=== PATIENT | male | born 1950 | race Caucasian/White ===

== ENCOUNTER 2021-06-01 05:41 | Inpatient (IN) | payer MEDICARE ==
[2021-06-01 05:56] LABS: Glucose,Whole Blood 274 mg/dL (75-99)
[2021-06-01] MEDS ORDERED: DILTIAZEM DRIP BOLUS FROM BAG 1 MG SOLN IV ONE ×2 (05:56→07:21)
[2021-06-01 06:05] LABS: Basophils # (A) 0.1 k/uL (0-0.2); Basophils % (A) 1 %; Eosinophils # (A) 0.3 k/uL (0-0.7); Eosinophils % (A) 3 %; HCT 43.9 % (39.0-53.0); HGB 15.7 gm/dL (13.0-17.5); Lymphocytes # (A) 2.6 k/uL (1.0-4.8); Lymphocytes % (A) 27 %; MCH 30.9 pg (25.0-35.0); MCHC 35.7 g/dL (31.0-37.0); MCV 86.6 fL (80.0-100.0); Mean Platelet Volume 7.1; Monocytes # (A) 0.4 k/uL (0-1.0); Monocytes % (A) 5 %; Neutrophils # (A) 6.1 k/uL (1.3-7.7); Neutrophils % (A) 63 %; Platelet Count 186 k/uL (150-450); RBC 5.07 m/uL (4.30-5.90); RDW 12.7 % (11.5-15.5); WBC 9.7 k/uL (3.8-10.6)
[2021-06-01] MEDS: DILTIAZEM 125 MG in SODIUM CHLORIDE 0.9% 100 ML IV SCH ×2 (06:05→21:33)
[2021-06-01] MEDS ORDERED: ASPIRIN 81 MG PO STA (06:06)
--- NOTE | 2021-06-01 06:06 | ED ---
Dizziness HPI - General Chief Complaint: Dizziness Stated Complaint: Weakness, confusion Time Seen by Provider: 06/01/21 05:56 Source: patient, family Mode of arrival: wheelchair Limitations: no limitations - History of Present Illness Initial Comments: This patient is 71-year-old man who presents to be evaluated for constellation of symptoms that started approximately 2 hours ago. Patient states that he had been sleeping then woke up and got out of bed use the bathroom. When he got up he felt lightheaded, he developed diaphoresis, he was short of breath. The patient states she sat down but the symptoms did not resolve. His then subsequently convinced him to be evaluated here. MD Complaint: dizziness Onset/Timin -: hour(s) Timing: sudden onset Description: lightheadedness History of Same: No History of Trauma: No Severity: moderate Improves With: rest Associated Symptoms: chest pain, diaphoresis - Related Data Home Medications Medication Instructions Recorded Confirmed Aspirin EC [Ecotrin Low Dose] 81 mg PO DAILY 06/01/21 06/01/21 Atorvastatin [Lipitor] 80 mg PO HS 06/01/21 06/01/21 Dulaglutide [Trulicity] 1.5 mg SQ MO 06/01/21 06/01/21 lisinopriL [Zestril] 2.5 mg PO DAILY 06/01/21 06/01/21 Allergies Allergy/AdvReac Type Severity Reaction Status Date / Time No Known Allergies Allergy Verified 06/01/21 06:52 Review of Systems ROS Statement: Those systems with pertinent positive or pertinent negative responses have been documented in the HPI. ROS Other: All systems not noted in ROS Statement are negative. Constitutional: Denies: fever, chills Respiratory: Reports: dyspnea. Denies: cough Cardiovascular: Reports: chest pain, palpitations. Denies: orthopnea, edema, syncope Gastrointestinal: Denies: abdominal pain, nausea, vomiting, diarrhea Genitourinary: Denies: dysuria, hematuria Musculoskeletal: Denies: back pain Skin: Denies: rash Neurological: Denies: headache Past Medical History Past Medical History: Diabetes Mellitus History of Any Multi-Drug Resistant Organisms: None Reported Past Surgical History: Heart Catheterization With Stent Past Psychological History: No Psychological Hx Reported Smoking Status: Never smoker Past Alcohol Use History: None Reported Past Drug Use History: None Reported General Exam Limitations: no limitations General appearance: alert, in no apparent distress Head exam: Present: atraumatic, normocephalic Eye exam: Present: normal appearance. Absent: scleral icterus, conjunctival injection ENT exam: Present: normal oropharynx Neck exam: Present: normal inspection Respiratory exam: Present: normal lung sounds bilaterally. Absent: respiratory distress, wheezes, rales, rhonchi, stridor Cardiovascular Exam: Present: tachycardia, irregular rhythm, systolic murmur. A bsent: diastolic murmur, rubs, gallop GI/Abdominal exam: Present: soft. Absent: distended, tenderness, guarding, rebound, rigid, mass Extremities exam: Present: normal inspection, normal capillary refill. Absent: pedal edema, calf tenderness Back exam: Present: normal inspection. Absent: CVA tenderness (R), CVA tenderness (L) Neurological exam: Present: alert Skin exam: Present: warm, dry, intact, normal color. Absent: rash Course Vital Signs 06/01/21 06/01/21 06/01/21 05:42 06:15 06:30 Temperature 97 F L Pulse Rate 124 H 115 H 99 Respiratory 22 20 20 Rate Blood Pressure 153/87 120/77 109/74 O2 Sat by Pulse 100 100 100 Oximetry EKG Findings - EKG Results: EKG: interpreted by ERMD, normal axis, normal QRS EKG shows: tachycardia, atrial fibrillation (With rapid ventricular rate, 127 bpm) - Blocks, [place], Hypertrophy, ST Abn: Repolarization changes or abnormalities: nonspecific abnormality, ST segment, and/or T wave Medical Decision Making - Lab Data Result diagrams: 06/01/21 05:58 06/01/21 05:58 Lab Results 06/01/21 06/01/21 06/01/21 Range/Units 05:54 05:58 05:58 WBC 9.7 (3.8-10.6) k/uL RBC 5.07 (4.30-5.90) m/uL Hgb 15.7 (13.0-17.5) gm/dL Hct 43.9 (39.0-53.0) % MCV 86.6 (80.0-100.0) fL MCH 30.9 (25.0-35.0) pg MCHC 35.7 (31.0-37.0) g/dL RDW 12.7 (11.5-15.5) % Plt Count 186 (150-450) k/uL MPV 7.1 Neutrophils % 63 % Lymphocytes % 27 % Monocytes % 5 % Eosinophils % 3 % Basophils % 1 % Neutrophils # 6.1 (1.3-7.7) k/uL Lymphocytes # 2.6 (1.0-4.8) k/uL Monocytes # 0.4 (0-1.0) k/uL Eosinophils # 0.3 (0-0.7) k/uL Basophils # 0.1 (0-0.2) k/uL PT 11.5 (9.0-12.0) sec INR 1.1 (<1.2) APTT 20.5 L (22.0-30.0) sec Sodium (137-145) mmol/L Potassium (3.5-5.1) mmol/L Chloride (98-107) mmol/L Carbon Dioxide (22-30) mmol/L Anion Gap mmol/L BUN (9-20) mg/dL Creatinine (0.66-1.25) mg/dL Est GFR (CKD-EPI)AfAm (>60 ml/min/1.73 sqM) Est GFR (CKD-EPI)NonAf (>60 ml/min/1.73 sqM) Glucose (74-99) mg/dL POC Glucose (mg/dL) 274 H (75-99) mg/dL POC Glu Professional Nursing Assistant ID Anabelle Knutson Calcium (8.4-10.2) mg/dL Magnesium (1.6-2.3) mg/dL Total Bilirubin (0.2-1.3) mg/dL AST (17-59) U/L ALT (4-49) U/L Alkaline Phosphatase (38-126) U/L Troponin I (0.000-0.034) ng/mL Total Protein (6.3-8.2) g/dL Albumin (3.5-5.0) g/dL 06/01/21 06/01/21 Range/Units 05:58 05:58 WBC (3.8-10.6) k/uL RBC (4.30-5.90) m/uL Hgb (13.0-17.5) gm/dL Hct (39.0-53.0) % MCV (80.0-100.0) fL MCH (25.0-35.0) pg MCHC (31.0-37.0) g/dL RDW (11.5-15.5) % Plt Count (150-450) k/uL MPV Neutrophils % % Lymphocytes % % Monocytes % % Eosinophils % % Basophils % % Neutrophils # (1.3-7.7) k/uL Lymphocytes # (1.0-4.8) k/uL Monocytes # (0-1.0) k/uL Eosinophils # (0-0.7) k/uL Basophils # (0-0.2) k/uL PT (9.0-12.0) sec INR (<1.2) APTT (22.0-30.0) sec Sodium 139 (137-145) mmol/L Potassium 3.4 L (3.5-5.1) mmol/L Chloride 102 (98-107) mmol/L Carbon Dioxide 21 L (22-30) mmol/L Anion Gap 16 mmol/L BUN 24 H (9-20) mg/dL Creatinine 0.89 (0.66-1.25) mg/dL Est GFR (CKD-EPI)AfAm >90 (>60 ml/min/1.73 sqM) Est GFR (CKD-EPI)NonAf 88 (>60 ml/min/1.73 sqM) Glucose 274 H (74-99) mg/dL POC Glucose (mg/dL) (75-99) mg/dL POC Glu Professional Nursing Assistant ID Calcium 9.8 (8.4-10.2) mg/dL Magnesium 1.9 (1.6-2.3) mg/dL Total Bilirubin 1.0 (0.2-1.3) mg/dL AST 29 (17-59) U/L ALT 26 (4-49) U/L Alkaline Phosphatase 131 H (38-126) U/L Troponin I <0.012 (0.000-0.034) ng/mL Total Protein 6.6 (6.3-8.2) g/dL Albumin 4.5 (3.5-5.0) g/dL Disposition Referrals: Efe Johnson MD [Primary Care Provider] - 1-2 days
[2021-06-01 06:19] LABS: ALT 26 U/L (4-49); AST 29 U/L (17-59); African American GFR (CKD) >90 (>60 ml/min/1.73 sqM); Albumin 4.5 g/dL (3.5-5.0); Alkaline Phosphatase 131 U/L (38-126); Anion Gap 16 mmol/L; Blood Urea Nitrogen 24 mg/dL (9-20); Calcium 9.8 mg/dL (8.4-10.2); Carbon Dioxide 21 mmol/L (22-30); Chloride 102 mmol/L (98-107); Glucose 274 mg/dL (74-99); Magnesium 1.9 mg/dL (1.6-2.3); Non-African American GFR(CKD) 88 (>60 ml/min/1.73 sqM); Potassium 3.4 mmol/L (3.5-5.1); Sodium 139 mmol/L (137-145); Total Protein 6.6 g/dL (6.3-8.2)
[2021-06-01 06:30] LABS: INR 1.1 (<1.2); Partial Thromboplastin Time 20.5 sec (22.0-30.0); Prothrombin Time 11.5 sec (9.0-12.0)
[2021-06-01] MEDS ORDERED: ONDANSETRON 4 MG/2 ML VIAL IVP STA (06:42)
[2021-06-01] MEDS ORDERED: INSULIN NPH 300 UNIT/3 ML VIAL SQ STA (06:46)
--- NOTE | 2021-06-01 07:13 | XR ---
EXAMINATION TYPE: XR chest 1V portable DATE OF EXAM: 06/01/2021 COMPARISON: 08/17/2012 HISTORY: Dysrhythmia TECHNIQUE: Single frontal view of the chest is obtained. FINDINGS: There is no focal air space opacity, pleural effusion, or pneumothorax seen. The cardiac silhouette size is within normal limits. The osseous structures are intact. IMPRESSION: No acute process.
[2021-06-01] MEDS ORDERED: NITROGLYCERIN SL TABS 0.4 MG TAB SUBLINGUAL PRN (07:14)
[2021-06-01] MEDS: INSULIN ASPART (NovoLOG) 100 UNIT/ML VIAL SQ SCH ×4 (07:38→21:24)
[2021-06-01] MEDS ORDERED: ENOXAPARIN 100 MG/ML SYRINGE SQ ONE (07:45)
[2021-06-01 08:27] LABS: Glucose,Whole Blood 312 mg/dL (75-99)
--- NOTE | 2021-06-01 08:31 | CT ---
EXAMINATION TYPE: CT brain wo con DATE OF EXAM: 06/01/2021 COMPARISON: None HISTORY: Weakness, confusion, diplopia CT DLP: 1147.4 mGycm Automated exposure control for dose reduction was used. FINDINGS: Artifact is noted extending across portions of the images. There is moderate generalized degenerative change. Faint low attenuation is nonspecific within the white matter. Intracranial atherosclerotic c hanges are noted. Calvarium is intact. No evidence of midline shift or mass effect. Orbits are symmet miriam. Sinuses are clear. IMPRESSION: DEGENERATIVE AND NONSPECIFIC WHITE MATTER CHANGES MOST TYPICAL OF REMOTE ISCHEMIA. CORRELATE CLINICAL LY.
[2021-06-01] MEDS ORDERED: NON FORMULARY DRUG (Aspirin Ec 81 MG Tablet.Dr) PO SCH (09:00)
[2021-06-01] MEDS: METOPROLOL TARTRATE 25 MG TAB PO SCH ×2 (10:44→23:37)
[2021-06-01 12:18] LABS: Glucose,Whole Blood 296 mg/dL (75-99)
--- NOTE | 2021-06-01 12:46 | ECHOF ---
Referral Reason:New-onset A.fib concerns for possible embolic CVA MEASUREMENTS -------- HEIGHT: 180.3 cm WEIGHT: 87.5 kg BP: IVSd: 1.2 cm (0.6 - 1.1) LVIDd: 4.1 cm (3.9 - 5.3) LVPWd: 1.2 cm (0.6 - 1.1) EDV(Teich): 74 ml IVSs: 1.9 cm LVIDs: 2.1 cm LVPWs: 1.9 cm %IVS Thck: 65 % ESV(Teich): 14 ml EF(Teich): 81 % %FS: 49 % SV(Teich): 60 ml RVIDd: 3.0 cm (< 3.3) LALs A4C: 6.1 cm LAAs A4C: 15.4 cm LAESV A-L A4C: 33 ml LAESV MOD A4C: 31 ml LALs A2C: 5.8 cm LAAs A2C: 17.4 cm LAESV A-L A2C: 44 ml LAESV MOD A2C: 41 ml LAESV(A-L): 39 ml LAESV Index (A-L): 18.69 ml/m Ao Diam: 3.8 cm (2.0 - 3.7) LA Diam: 3.2 cm (2.7 - 3.8) AV Cusp: 2.2 cm (1.5 - 2.6) EPSS: 0.9 cm MR Vmax: 0.93 m/s MR maxP.46 mmHg AV Vmax: 1.20 m/s AV maxP.74 mmHg TR Vmax: 1.72 m/s TR maxP.89 mmHg RAP: 5.00 mmHg RVSP: 16.89 mmHg MV EF SLOPE: 98.12 mm/s (70 - 150) MV EXCURSION: 22.91 mm (> 18.000) FINDINGS -------- Atrial fibrillation. This was a technically good study. The left ventricular size is normal. There is mild concentric left ventricular hypertrophy. Overa ll left ventricular systolic function is normal with, an EF between 55 - 60 %. Left ventricular cliff limg pressure cannot be estimated due to Atrial fibrillation. The right ventricle is normal in size. The left atrial size is normal. Normal LA size by volume 22+/-6 ml/m2. The right atrial size is normal. The aortic valve is trileaflet and appears structurally normal. The mitral valve is normal. Mild mitral regurgitation is present. Cannot exclude mitral valve pro lapse. The tricuspid valve appears structurally normal. Mild tricuspid regurgitation present. Right vent ricular systolic pressure is normal at < 35 mmHg. There is no pulmonic regurgitation present. The aortic root size is normal. IVC Not well visulized. There is no pericardial effusion. CONCLUSIONS -------- 1. Atrial fibrillation. 2. The left ventricular size is normal. 3. There is mild concentric left ventricular hypertrophy. 4. Overall left ventricular systolic function is normal with, an EF between 55 - 60 %. 5. Left ventricular fillimg pressure cannot be estimated due to Atrial fibrillation. 6. Mild mitral regurgitation is present. 7. Cannot exclude mitral valve prolapse. 8. Mild tricuspid regurgitation present. 9. There is no pericardial effusion. ROUGH RIB GRADER: Dori Orellana RDCS
--- NOTE | 2021-06-01 12:49 | P.CRDCN ---
History of Present Illness Consult date: 06/01/21 History of present illness: HISTORY OF PRESENT ILLNESS: This is a 71-year-old male with a past medical history significant for diabetes, hypertension, hyperlipidemia, and coronary artery disease with previous stenting. Patient follows in the office with Dr. Zhang. We have been asked to see the patient in consultation for new onset atrial fibrillation. Patient examined at the bedside. Patient presented to the hospital secondary to severe diaphoresis and double vision after getting up from bed to use the bathroom. He denies chest pain or pressure. Denies shortness of breath. he denied feeling palpitations. Patient was found to be in A. fib with RVR upon presentation to the hospital. Patient was started on IV Cardizem. At the time of my examination, the patient remains in atrial fibrillation with heart rate around 110. EKG reveals A. fib with RVR Chest xray negative for acute process brain CT: Degenerative and nonspecific white matter changes most typical of remote ischemia. Laboratory data: WBC 9.7. Hemoglobin 15.7. Platelet count 186. Sodium 139. Potassium 3.4. BUN 24. Creatinine 0.89. troponin negative 2. Current home cardiac medications include lisinopril 2.5 mg daily, atorvastatin 80 mg daily, aspirin 81 mg daily REVIEW OF SYSTEMS: At the time of my exam: CONSTITUTIONAL: Denies fever or chills. HEENT: reports double vision. Denies hemoptysis CARDIOVASCULAR: Denies chest pain. Denies orthopnea. Denies PND. Denies palpitations RESPIRATORY: Denies shortness of breath. GASTROINTESTINAL: Denies abdominal pain. Denies nausea or vomiting. HEMATOLOGIC: Denies bleeding disorders. GENITOURINARY: Denies any blood in urine. SKIN: Denies pruitis. Denies rash. PHYSICAL EXAM: VITAL SIGNS: Reviewed. GENERAL: Well-developed in no acute distress. HEENT: Head is normocephalic. Pupils are equal, round. Sclerae anicteric. Mucous membranes of the mouth are moist. Neck supple. No JVD or thyromegaly LUNGS: Respirations even and unlabored. Lungs essentially clear to auscultation bilaterally. HEART: Irregular rate and rhythm. S1 and S2 heard. ABDOMEN: Soft. Nondistended. Nontender. EXTREMITIES: Normal range of motion. No clubbing or cyanosis. Peripheral p ulses intact. No lower extremity edema NEUROLOGIC: Awake and alert. Oriented x 3. ASSESSMENT: Double vision, possible TIA/CVA New onset atrial fibrillation with RVR Coronary artery disease with previous stenting Hypertension Hyperlipidemia Diabetes mellitus PLAN: 2D echo ordered. Await results Continue IV cardizem. Add Metoprolol 25mg BID Continue Lovenox for anticoagulation Case management consulted for Eliquis coverage Check TSH Neurology consulted Further recommendations pending patient course Nurse practitioner note has been reviewed by physician. Signing provider agrees with the documented findings, assessment, and plan of care. Past Medical History Past Medical History: Diabetes Mellitus History of Any Multi-Drug Resistant Organisms: None Reported Past Surgical History: Heart Catheterization With Stent Past Psychological History: No Psychological Hx Reported Smoking Status: Never smoker Past Alcohol Use History: None Reported Past Drug Use History: None Reported Medications and Allergies Home Medications Medication Instructions Recorded Confirmed Type Apixaban [Eliquis] 5 mg PO BID #60 tab 06/01/21 Rx Aspirin EC [Ecotrin Low Dose] 81 mg PO DAILY 06/01/21 06/01/21 History Atorvastatin [Lipitor] 80 mg PO HS 06/01/21 06/01/21 History Dulaglutide [Trulicity] 1.5 mg SQ MO 06/01/21 06/01/21 History lisinopriL [Zestril] 2.5 mg PO DAILY 06/01/21 06/01/21 History Allergies Allergy/AdvReac Type Severity Reaction Status Date / Time No Known Allergies Allergy Verified 06/01/21 06:52 Physical Exam Vitals: Vital Signs Temp Pulse Resp BP Pulse Ox 06/01/21 10:40 93 18 104/63 99 06/01/21 09:41 99 18 112/89 99 06/01/21 08:36 98 18 112/89 100 06/01/21 08:06 97.6 F 115 H 06/01/21 06:30 99 20 109/74 100 06/01/21 06:15 115 H 20 120/77 100 06/01/21 05:42 97 F L 124 H 22 153/87 100 Intake and Output 05/31/21 06/01/21 06/01/21 22:59 06:59 14:59 Other: Weight 87.543 kg Results 06/01/21 05:58 06/01/21 05:58 Cardiac Enzymes 07/16/21 07/16/21 07/16/21 Range/Units 05:58 05:58 09:54 AST 29 (17-59) U/L Troponin I <0.012 <0.012 (0.000-0.034) ng/mL Coagulation 06/01/21 Range/Units 05:58 PT 11.5 (9.0-12.0) sec APTT 20.5 L (22.0-30.0) sec CBC 06/01/21 Range/Units 05:58 WBC 9.7 (3.8-10.6) k/uL RBC 5.07 (4.30-5.90) m/uL Hgb 15.7 (13.0-17.5) gm/dL Hct 43.9 (39.0-53.0) % Plt Count 186 (150-450) k/uL Comprehensive Metabolic Panel 06/01/21 Range/Units 05:58 Sodium 139 (137-145) mmol/L Potassium 3.4 L (3.5-5.1) mmol/L Chloride 102 (98-107) mmol/L Carbon Dioxide 21 L (22-30) mmol/L BUN 24 H (9-20) mg/dL Creatinine 0.89 (0.66-1.25) mg/dL Glucose 274 H (74-99) mg/dL Calcium 9.8 (8.4-10.2) mg/dL AST 29 (17-59) U/L ALT 26 (4-49) U/L Alkaline Phosphatase 131 H (38-126) U/L Total Protein 6.6 (6.3-8.2) g/dL Albumin 4.5 (3.5-5.0) g/dL Current Medications Generic Name Dose Route Start Last Admin Trade Name Freq PRN Reason Stop Dose Admin Aspirin 81 mg 06/02/21 09:00 Aspirin 81 Mg PO DAILY [facility] Atorvastatin Calcium 80 mg 06/01/21 21:00 Atorvastatin 80 Mg Tab PO HS JUAN JOSE Enoxaparin Sodium 90 mg 06/01/21 21:00 Enoxaparin 100 Mg/Ml Syringe SQ Q12HR [facility] Diltiazem HCl 125 mg/ Sodium 125 mls @ 5 mls/hr 06/01/21 06:00 06/01/21 06:05 Chloride IV 5 mg/hr .Q24H JUAN JOSE 5 mls/hr Administration 5 MG/HR Insulin Aspart 0 unit 06/01/21 07:30 06/01/21 07:38 Insulin Aspart (Novolog) 100 Unit/Ml Vial SQ Not Given ACHS JUAN JOSE Protocol Lisinopril 2.5 mg 06/01/21 10:30 06/01/21 10:44 Lisinopril 2.5 Mg Tab PO 2.5 mg DAILY JUAN JOSE Administration Metoprolol Tartrate 25 mg 06/01/21 10:30 06/01/21 10:44 Metoprolol Tartrate 25 Mg Tab PO 25 mg BID JUAN JOSE Administration Nitroglycerin 0.4 mg 06/01/21 07:14 Nitroglycerin Sl Tabs 0.4 Mg Tab SUBLINGUAL Q5M PRN Chest Pain Non-Formulary Medication 1.5 mg 06/04/21 09:00 Dulaglutide [Trulicity] SQ MO JUAN JOSE Intake and Output 05/31/21 06/01/21 06/01/21 22:59 06:59 14:59 Other: Weight 87.543 kg 06/01/21 05:58 06/01/21 05:58
[2021-06-01] MEDS ORDERED: HYDROcodone/APAP 5-325MG 1 EACH TAB PO PRN (12:55)
[2021-06-01] MEDS ORDERED: ACETAMINOPHEN TAB 325 MG TAB PO PRN (12:55)
[2021-06-01] MEDS ORDERED: POTASSIUM CHLORIDE ER 20 MEQ TAB.ER PO STA (15:02)
--- NOTE | 2021-06-01 15:37 | P.HPIM ---
<Riaz Cortez - Last Filed: 06/01/21 14:53> History of Present Illness H&P Date: 06/01/21 History of Presenting Illness: Patient is a very pleasant 71-year-old male with a past medical history of coronary artery disease with stents, hypertension, hyperlipidemia, and type II lma-qmtdxap-grkamdkdg diabetes mellitus. He presented to the emergency department with a chief complaint of lightheadedness, dizziness, double vision, shortness of breath, and diaphoresis which came on suddenly when he awoke this morning and got up to use the restroom. He had complete workup done in the emergency department and was found to be in A. fib with RVR. An EKG was completed confirming atrial fibrillation with RVR at 127 bpm with no noted T- wave or ST abnormalities showing no signs of acute ischemia. A chest x-ray was also completed which was negative for acute cardiopulmonary process. troponin negative. CBC normal findings. BMP revealing mild hypokalemia and hyperglycemia otherwise normal findings. Patient was given therapeutic Lovenox injection and started on Cardizem infusion. He was admitted under our services for new onset A. fib with consultation to cardiology for continued medical management. CT head completed showing degenerative and nonspecific white matter changes most typical of remote ischemia. Neurology then consulted, neuro checks ordered, and MRI of brain to be completed. Patient was seen and fully evaluated at the bedside and reports improvement of his symptoms from initial arrival N full resolution of previously reported shortness of breath; however he does continue to report mild dizziness/lightheadedness with double vision. Patient denies having any changes in hearing or tinnitus, numbness in face or tongue, difficulties with or changes in speech, dysphasia, chest pain or palpitations, nausea, vomiting, or experiencing any numbness/tingling/weakness in his extremities. Review of systems: Pertinent positives and negatives as discussed in HPI, a complete review of systems was performed and all other systems are negative. Physical exam: General: non toxic, no distress, appears at stated age Derm: warm, dry Head: atraumatic, normocephalic, symmetric Eyes: Pupils PERRLA. EOMI, no lid lag, anicteric sclera Mouth: no lip lesion, mucus membranes moist Cardiovascular: S1-S2 normal with regular rate and rhythm. No murmurs, gallops, or rubs noted. Posterior tibial pulses palpated bilaterally. Cap refill less than 2 seconds. Lungs: Respirations even, regular, and unlabored on room air. Lungs clear to auscultation bilaterally with no wheezes, rhonchi, or rales noted. No accessory muscle usage. Abdominal: soft, nontender to palpation, no guarding, no appreciable organomegaly Ext: no gross muscle atrophy, no edema, no contractures Neuro: GCS 15. Speech clear. CN II-XI grossly intact, no focal neuro deficits. No arm drift. Normal finger to nose. Normal repetitive movements. Normal bbql-be-yytu. Sensation intact. Psych: Alert, oriented, appropriate affect Assessment and Plan of Care: New-onset atrial fibrillation with RVR -EKG was completed confirming atrial fibrillation with RVR at 127 bpm with no noted T-wave or ST abnormalities showing no signs of acute ischemia. -[id number] score 2-3. -Patient received therapeutic dose of Lovenox in ED and is being started on Eliquis by cardiolgoy at this time. -Continue Cardizem infusion for rate control -Lopressor 25 mg twice a day -Telemetry monitoring. -echocardiogram showing a normal EF of 55-60% with no significant valvular abnormalities. -Cardiology following, appreciate further recommendations. Dizziness, lightheadedness, and double vision -CT head showing degenerative and nonspecific white matter changes most typical of remote ischemia. -MRI of brain with and without contrast to be completed. -Neurology consulted, appreciate recommendations. -Neuro checks every 4 hours -Echocardiogram showing a normal EF of 55-60% and no significant valvular abnormalities. -Cardiology consulted, appreciate recommendations. -Telemetry monitoring. -Daily aspirin and atorvastatin -Lipid profile and Hgb A1c with a.m. labs. -Fall precautions. Type II brx-oyukqkj-wfriabdkr diabetes mellitus with hyperglycemia -Glycemic protocol with NovoLog sliding scale. -Heart healthy carb consistent diet. -Hemoglobin A1c with a.m. labs. Hypertension -Monitor vital signs and continue daily medication regimen. Hyperlipidemia -Continue atorvastatin 80 mg nightly. -Lipid profile with a.m. labs. The patient is admitted with an anticipated greater than 2 midnight stay for evaluation of new-onset atrial fibrillation with RVR along with dizziness, lightheadedness, and double vision. CODE STATUS: Full code DVT prophylaxis: Eliquis Discussed with: patient and his at bedside. Anticipated discharge date: clinical course to determine. Anticipated discharge place: home A total of 45 minutes was spent on the care of this complex patient more than 50% of the time was spent in counseling and care coordination. Past Medical History Past Medical History: Diabetes Mellitus History of Any Multi-Drug Resistant Organisms: None Reported Past Surgical History: Heart Catheterization With Stent Past Psychological History: No Psychological Hx Reported Smoking Status: Never smoker Past Alcohol Use History: None Reported Past Drug Use History: None Reported Medications and Allergies Home Medications Medication Instructions Recorded Confirmed Type Apixaban [Eliquis] 5 mg PO BID #60 tab 06/01/21 Rx Aspirin EC [Ecotrin Low Dose] 81 mg PO DAILY 06/01/21 06/01/21 History Atorvastatin [Lipitor] 80 mg PO HS 06/01/21 06/01/21 History Dulaglutide [Trulicity] 1.5 mg SQ MO 06/01/21 06/01/21 History lisinopriL [Zestril] 2.5 mg PO DAILY 06/01/21 06/01/21 History Allergies Allergy/AdvReac Type Severity Reaction Status Date / Time No Known Allergies Allergy Verified 06/01/21 06:52 Physical Exam Vitals: Vital Signs Temp Pulse Resp BP Pulse Ox 06/01/21 10:40 93 18 104/63 99 06/01/21 09:41 99 18 112/89 99 06/01/21 08:36 98 18 112/89 100 06/01/21 08:06 97.6 F 115 H 06/01/21 06:30 99 20 109/74 100 06/01/21 06:15 115 H 20 120/77 100 06/01/21 05:42 97 F L 124 H 22 153/87 100 Intake and Output 05/31/21 06/01/21 06/01/21 22:59 06:59 14:59 Other: Weight 87.543 kg Results CBC & Chem 7: 06/01/21 05:58 06/01/21 05:58 Labs: Abnormal Lab Results - Last 24 Hours (Table) 06/01/21 06/01/21 06/01/21 Range/Units 05:54 05:58 05:58 APTT 20.5 L (22.0-30.0) sec Potassium 3.4 L (3.5-5.1) mmol/L Carbon Dioxide 21 L (22-30) mmol/L BUN 24 H (9-20) mg/dL Glucose 274 H (74-99) mg/dL POC Glucose (mg/dL) 274 H (75-99) mg/dL Alkaline Phosphatase 131 H (38-126) U/L 06/01/21 06/01/21 Range/Units 08:25 12:16 APTT (22.0-30.0) sec Potassium (3.5-5.1) mmol/L Carbon Dioxide (22-30) mmol/L BUN (9-20) mg/dL Glucose (74-99) mg/dL POC Glucose (mg/dL) 312 H 296 H (75-99) mg/dL Alkaline Phosphatase (38-126) U/L <Mary Grace Jalloh - Last Filed: 06/01/21 22:25> History of Present Illness Patient seen and examined independently. Patient was also seen by Riaz Cortez NP and case was discussed. I am in agreement with subjective, physical exam, assessment and plan as written above and amended below. Concerns for vertigo. Patient reports that symptoms are worse when he tries to sit forward or turns head to the side, he does not have dizziness when he moves his eyes only. He reports that his dizziness is improved when he closes one or the other eye. He also associates this with double vision. No history of BPPV. This is some onset today. Concern for possible stroke. Await neurology recommendations. MRI in a.m. We'll try to coordinate with nurse for Zofran and Antivert prior to MRI. General: non toxic, no distress, appears at stated age Derm: warm, dry Head: atraumatic, normocephalic, symmetric Eyes: EOMI, no lid lag, anicteric sclera Mouth: no lip lesion, mucus membranes moist Cardiovascular: S1S2 reg, no murmur, positive posterior tibial pulse bilateral, Lungs: CTA bilateral, no rhonchi, no rales , no accessory muscle use Ext: no gross muscle atrophy, no edema, no contractures Neuro: CN II-XI grossly intact, no focal neuro deficits, patient does have horizontal nystatin when eyes are deviated to the left. Psych: Alert, oriented, appropriate affect Physical Exam Osteopathic Statement: *. No significant issues noted on an osteopathic structural exam other than those noted in the History and Physical/Consult. Vitals: Vital Signs Temp Pulse Pulse Resp BP BP Pulse Ox 07/16/21 20:00 98.1 F 82 18 95/66 97 06/01/21 15:37 98.1 F 73 16 100/67 99 06/01/21 15:22 98.0 F 85 16 106/71 100 06/01/21 13:00 99 20 110/78 100 06/01/21 11:30 98.0 F 102 H 19 107/74 98 06/01/21 10:40 93 18 104/63 99 06/01/21 09:41 99 18 112/89 99 06/01/21 08:36 98 18 112/89 100 06/01/21 08:06 97.6 F 115 H 06/01/21 07:00 131 H 15 115/79 98 06/01/21 06:30 108 H 15 120/77 99 06/01/21 06:15 115 H 20 120/77 100 06/01/21 06:00 134 H 17 134/90 100 06/01/21 05:56 134 H 24 06/01/21 05:42 97 F L 124 H 22 153/87 100 Intake and Output 06/01/21 06/01/21 06/01/21 06:59 14:59 22:59 Intake Total 316.750 Output Total 120 Balance 196.750 Intake: Intake, IV Titration 76.750 Amount Diltiazem 125 mg In 76.750 Sodium Chloride 0.9% 100 ml @ 5 MG/HR 5 mls/hr IV .Q24H [facility] Rx#:[id number] Oral 240 Output: Urine 120 Other: # Voids 1 Weight 87.543 kg 87.543 kg Results CBC & Chem 7: 06/01/21 05:58 06/01/21 05:58 Labs: Abnormal Lab Results - Last 24 Hours (Table) 06/01/21 06/01/21 06/01/21 Range/Units 05:54 05:58 05:58 APTT 20.5 L (22.0-30.0) sec Potassium 3.4 L (3.5-5.1) mmol/L Carbon Dioxide 21 L (22-30) mmol/L BUN 24 H (9-20) mg/dL Glucose 274 H (74-99) mg/dL POC Glucose (mg/dL) 274 H (75-99) mg/dL Hemoglobin A1c (4.0-6.0) % Alkaline Phosphatase 131 H (38-126) U/L 06/01/21 06/01/21 06/01/21 Range/Units 08:25 09:50 12:16 APTT (22.0-30.0) sec Potassium (3.5-5.1) mmol/L Carbon Dioxide (22-30) mmol/L BUN (9-20) mg/dL Glucose (74-99) mg/dL POC Glucose (mg/dL) 312 H 296 H (75-99) mg/dL Hemoglobin A1c 11.5 H (4.0-6.0) % Alkaline Phosphatase (38-126) U/L 06/01/21 06/01/21 Range/Units 17:40 20:26 APTT (22.0-30.0) sec Potassium (3.5-5.1) mmol/L Carbon Dioxide (22-30) mmol/L BUN (9-20) mg/dL Glucose (74-99) mg/dL POC Glucose (mg/dL) 248 H 203 H (75-99) mg/dL Hemoglobin A1c (4.0-6.0) % Alkaline Phosphatase (38-126) U/L
[2021-06-01] MEDS ORDERED: ONDANSETRON 4 MG/2 ML VIAL IVP PRN (16:52)
[2021-06-01 17:36] LABS: Hemoglobin A1C 11.5 % (4.0-6.0)
[2021-06-01 17:46] LABS: Glucose,Whole Blood 248 mg/dL (75-99)
[2021-06-01 20:27] LABS: Glucose,Whole Blood 203 mg/dL (75-99)
[2021-06-01] MEDS ORDERED: MAG HYDROX/AL HYDROX/SIMETH 30 ML CUP PO PRN (20:39)
[2021-06-01] MEDS ORDERED: ENOXAPARIN 100 MG/ML SYRINGE SQ SCH (21:00)
[2021-06-01] MEDS ORDERED: APIXABAN 5 MG TAB PO SCH (21:00)
[2021-06-01] MEDS: PANTOPRAZOLE 40 MG TABLET PO SCH (21:22)
[2021-06-01] MEDS: ATORVASTATIN 80 MG TAB PO SCH (21:33)
--- NOTE | 2021-06-01 23:43 | P.CNNES ---
History of Present Illness Consult date: 06/01/21 Requesting physician: Riaz Cortez Reason for Consult: Rule out embolic CVA, dizziness lightheadedness, blurred vision History of Present Illness: Patient is a 71-year-old right-handed male came to the hospital this morning at 5:41 AM for evaluation of dizziness and nausea vomiting. Patient states that he got up at 4 AM, went to the bathroom. He came back and was laying in the chair in the living room, wanted to watch TV, when he started spinning and he became dizzy. He started throwing up. He was sweating profusely. He threw up 2-3 times. He noticed that his left eye was trying to close. As his symptoms per sisted, he came to the ER. While in the ER, patient developed double vision. His left eye continue to close on him. He denies any numbness tingling any focal weakness. Denies loss of vision. Patient's daughter states that she did notice slight facial droop on one side. He was talking slow but there was no slurring no problem with finding words. She notices that he was not registering as normal. Patient's daughter also noticed that while in the ER at 9 AM, he had a seizure type spell, in which his head started shaking, then arm started shaking almost like a seizure, lasting for 1-1/2 minute. Patient states that he did not lose consciousness, but couldn't control himself. Please refer to ED course from the charting. Patient did not receive TPA. Patient's vital signs on arrival blood pressure 153/87, pulse rate 124, temperature 97.0. CT head showed degenerative and nonspecific white matter changes, most typical of remote ischemia. Correlate clinically. 2-D echo revealed atrial fibrillation. Left frontal bur size is normal. Mild concentric LVH, EF is 55-60%. Mild MR. Cannot exclude mitral valve prolapse. EKG shows atrial fibrillation with rapid ventricular rate of 127. Chest x-ray showed no acute process. Blood test shows normal CBC, PT/PTT, sodium 139 potassium 3.4, normal renal functions. Sodium is elevated up to 312. Hepatic panel normal. Troponin negative. Patient has history of diabetes for last 10 years, denies hypertension. He a cardiac stent on 08/26/2012. He never smoked, not a heavy drinker. Denies any history of strokes or TIA. He does take aspirin 81 mg daily. Also on lisinopril, Lipitor 80 mg and Trulicity. Patient was given therapeutic Lovenox injection 90 mg subcu in the ER at 7:45 AM. He was also given aspirin. Patient at present feels much better. Still has some dizziness. Still with some double vision looking to the right Review of Systems As above in detail. All other review of systems reviewed and noncontributory. Denies any chest pain, abdominal pain. He does have nausea vomiting. No loss of vision. No weight loss. No anxiety depression. No fever or chills. No dysphagia. No hoarseness. Patient has chronic mild to moderate hearing loss, which he believes is age-related. Past Medical History Past Medical History: Diabetes Mellitus History of Any Multi-Drug Resistant Organisms: None Reported Past Surgical History: Heart Catheterization With Stent Date of Last Stent Placement:: august 2012 Past Psychological History: No Psychological Hx Reported Smoking Status: Never smoker Past Alcohol Use History: None Reported Past Drug Use History: None Reported Medications and Allergies Home Medications Medication Instructions Recorded Confirmed Type Apixaban [Eliquis] 5 mg PO BID #60 tab 06/01/21 Rx Aspirin EC [Ecotrin Low Dose] 81 mg PO DAILY 06/01/21 06/01/21 History Atorvastatin [Lipitor] 80 mg PO HS 06/01/21 06/01/21 History Dulaglutide [Trulicity] 1.5 mg SQ MO 06/01/21 06/01/21 History lisinopriL [Zestril] 2.5 mg PO DAILY 06/01/21 06/01/21 History Allergies Allergy/AdvReac Type Severity Reaction Status Date / Time No Known Allergies Allergy Verified 06/01/21 06:52 Physical Examination - Vital Signs Vital Signs: Vital Signs Temp Pulse Pulse Resp BP BP Pulse Ox 06/01/21 15:37 98.1 F 73 16 100/67 99 06/01/21 15:22 98.0 F 85 16 106/71 100 06/01/21 13:00 99 20 110/78 100 06/01/21 11:30 98.0 F 102 H 19 107/74 98 06/01/21 10:40 93 18 104/63 99 06/01/21 09:41 99 18 112/89 99 06/01/21 08:36 98 18 112/89 100 06/01/21 08:06 97.6 F 115 H 06/01/21 07:00 131 H 15 115/79 98 06/01/21 06:30 108 H 15 120/77 99 06/01/21 06:15 115 H 20 120/77 100 06/01/21 06:00 134 H 17 134/90 100 06/01/21 05:56 134 H 24 06/01/21 05:42 97 F L 124 H 22 153/87 100 Intake and Output 06/01/21 06/01/21 06/01/21 06:59 14:59 22:59 Other: Weight 87.543 kg 87.543 kg Patient is a young-looking elderly male, very pleasant, in no acute distress. Patient is alert awake oriented to time place and person. Speech and language functions are normal. Attention, concentration and fund of knowledge is adequate. On cranial examination, left pupil is slightly smaller, questionable Naila. Both pupils are reacting to light. Patient's visual chavez are full on confrontation, patient has diplopia looking to the right. His extraocular muscles are intact. Patient has very significant horizontal nystagmus looking to the right. Down beat nystagmus looking to the left. Patient has slightly decreased right nasolabial fold. Patient's tongue protrudes to the midline. Palatal elevation and sensation normal, hearing is moderately decreased (not new finding per patient) and shoulder shrug normal, facial sensation normal. Shoulder shrug normal. On muscle strength testing, there is no pronator drift and the strength is normal in arms and legs distally and proximally. Deep tendon reflexes are 1+ and symmetric and plantars downgoing. Sensory to touch and temperature is equal with no neglect. Cerebellar function showed no definitive ataxia for [id number] testing. He has mild ataxia for symo-ju-hzrg testing on the left. Tone and bulk of muscles normal. Gait not checked. On general examination, there is no carotid bruit or murmur, S1-S2 audible. Abdomen is soft nontender. Chest is clear. Peripheral pulses are present. No edema. 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 Localization to the brainstem/cerebellum, ? Possible superior cerebellar artery distribution. Most likely embolic from new onset atrial fibrillation. * Atrial fibrillation, new onset * Seizure type spell * Hypertension * Diabetes Plan: * Agree with starting anticoagulation for prevention of recurrent strokes from atrial fibrillation. Patient to be started on Eliquis 5 mg twice a day. * Await MRI of the brain. * Carotid Doppler * 2-D echo showed atrial fibrillation, normal left-ventricular size. Mild concentric LVH, EF is between 55-60%. Left ventricular filling pressure cannot be estimated due to atrial fibrillation. Mild MR. Cannot exclude mitral valve prolapse. Cardiology on the case. * Hemoglobin A1c, fasting lipid panel. * Discussed with patient and his family in detail.
[2021-06-02 05:07] LABS: Chol/HDL Ratio 3.94; LDL Cholesterol,Calculated 72.2 mg/dL (0.0-131.0); VLDL Calculation 27.8 mg/dL (5.00-40.00)
[2021-06-02 05:57] LABS: Glucose,Whole Blood 189 mg/dL (75-99)
[2021-06-02] MEDS: INSULIN ASPART (NovoLOG) 100 UNIT/ML VIAL SQ SCH ×4 (06:22→21:03)
[2021-06-02] MEDS: PANTOPRAZOLE 40 MG TABLET PO SCH (06:22)
[2021-06-02] MEDS ORDERED: PROCHLORPERAZINE INJ 10 MG/2 ML VIAL IVP PRN (08:05)
[2021-06-02] MEDS ORDERED: MECLIZINE 25 MG TAB PO STA (08:17)
[2021-06-02] MEDS ORDERED: SODIUM CHLORIDE 0.9% 1,000 ML IV ONE (08:35)
[2021-06-02] MEDS ORDERED: HEPARIN SODIUM 1,000 UN/ML (10ML VL) IV PRN (08:38)
[2021-06-02] MEDS ORDERED: HEPARIN SOD,PORK IN 0.45% NACL 25,000 UNIT in 0.45% NACL 1 250ML.BAG IV SCH (08:45)
[2021-06-02] MEDS: ASPIRIN 81 MG PO SCH (08:47)
[2021-06-02] MEDS: APIXABAN 5 MG TAB PO SCH ×2 (08:47→21:02)
[2021-06-02] MEDS ORDERED: ASPIRIN 325 MG TAB PO SCH (09:00)
[2021-06-02 09:26] LABS: Basophils % (A) 0 %; Eosinophils # (A) 0.1 k/uL (0-0.7); Eosinophils % (A) 1 %; HCT 44.7 % (39.0-53.0); HGB 15.6 gm/dL (13.0-17.5); Lymphocytes # (A) 1.7 k/uL (1.0-4.8); Lymphocytes % (A) 19 %; MCH 30.4 pg (25.0-35.0); MCHC 34.8 g/dL (31.0-37.0); MCV 87.5 fL (80.0-100.0); Mean Platelet Volume 7.4; Monocytes # (A) 0.5 k/uL (0-1.0); Monocytes % (A) 5 %; Neutrophils # (A) 6.8 k/uL (1.3-7.7); Neutrophils % (A) 75 %; Platelet Count 162 k/uL (150-450); RBC 5.11 m/uL (4.30-5.90); RDW 12.9 % (11.5-15.5); WBC 9.1 k/uL (3.8-10.6)
--- NOTE | 2021-06-02 09:34 | US ---
EXAMINATION TYPE: US carotid duplex BILAT DATE OF EXAM: 06/02/2021 COMPARISON: ct brain CLINICAL HISTORY: stroke. Patient stated had dizziness episode with overall weakness when attempted t o stand; diabetic; coronary artery stent EXAM MEASUREMENTS: RIGHT: Peak Systolic Velocity (PSV) cm/sec ----- Right CCA: 50.5 ----- Right ICA: 58.1 ----- Right ECA: 71.3 ICA/CCA ratio: 1.2 RIGHT: End Diastole cm/sec ----- Right CCA: 13.1 ----- Right ICA: 25.2 ----- Right ECA: 0.0 LEFT: Peak Systolic Velocity (PSV) cm/sec ----- Left CCA: 38.4 ----- Left ICA: 115.9 ----- Left ECA: 46.8 ICA/CCA ratio: 3.0 LEFT: End Diastole cm/sec ----- Left CCA: 10.9 ----- Left ICA: 43.9 ----- Left ECA: 9.2 VERTEBRALS (direction of flow): Right Vertebral: Antegrade Left Vertebral: Antegrade Rhythm: Arrhythmia Mild to moderate, irregular mixed plaque is noted at bilateral carotid bifurcation, but PSV is wnl bi laterally. IMPRESSION: 1. Atheromatous plaquing with intimal thickening. No significant flow-limiting stenosis is evident by velocity measurements. Criteria for Assigning % of Stenosis / Diameter reduction (Estimation based on the indirect measurements of the internal carotid artery velocities (ICA PSV). 1. Normal (no stenosis)=ICA PSV < 125 cm/s: ratio < 2.0: ICA EDV<40 cm/s. 2. Less than 50% stenosis=ICA PSV < 125 cm/s: ratio < 2.0: ICA EDV<40 cm/s. 3. 50 to 69% stenosis=ICA PSV of 125 to 230 cm/s: ration 2.0 ? 4.0: ICA EDV 40-100 cm/s. 4. Greater than 70% stenosis to near occlusion= ICA PSV > 230 cm/s: ratio > 4.0: ICA EDV > 100 cm/s. 5. Near occlusion= ICA PSV velocities may be low or undetectable: variable ratio and ICA EDV. 6. Total occlusion=unable to detect flow.
[2021-06-02 10:49] LABS: INR 1.1 (<1.2); Partial Thromboplastin Time 23.8 sec (22.0-30.0); Prothrombin Time 11.7 sec (9.0-12.0)
[2021-06-02 12:08] LABS: Chol/HDL Ratio 3.59; LDL Cholesterol,Calculated 71.2 mg/dL (0.0-131.0); VLDL Calculation 16.8 mg/dL (5.00-40.00)
--- NOTE | 2021-06-02 12:36 | P.PN ---
<Riaz Cortez - Last Filed: 06/02/21 15:50> Subjective Progress Note Date: 06/02/21 History of Presenting Illness: Patient is a very pleasant 71-year-old male with a past medical history of coronary artery disease with stents, hypertension, hyperlipidemia, and type II pgm-kveffkl-hsngzluak diabetes mellitus. He presented to the emergency department with a chief complaint of lightheadedness, dizziness, double vision, shortness of breath, and diaphoresis which came on suddenly when he awoke this morning and got up to use the restroom. He had complete workup done in the emerg ency department and was found to be in A. fib with RVR. An EKG was completed confirming atrial fibrillation with RVR at 127 bpm with no noted T-wave or ST abnormalities showing no signs of acute ischemia. A chest x-ray was also completed which was negative for acute cardiopulmonary process. troponin negative. CBC normal findings. BMP revealing mild hypokalemia and hyperglycemia otherwise normal findings. Patient was given therapeutic Lovenox injection and started on Cardizem infusion. He was admitted under our services for new onset A. fib with consultation to cardiology for continued medical management. CT head completed showing degenerative and nonspecific white matter changes most typical of remote ischemia. Neurology then consulted, neuro checks ordered, and MRI of brain to be completed. Physical exam: Patient seen and fully evaluated at the bedside. He reports feeling much better this morning. Stating that his double vision, dizziness, and lightheadedness seemed to have resolved this morning and he denies having any other complaints including headache, changes in hearing or tinnitus, changes in her difficulties with speech, dysphasia, numbness or tingling in face, chest pain or palpitations, shortness of breath, or experiencing any numbness/tingling/weakness in his extremities. Patient did have episode of significant hypotension while on Cardizem infusion, Cardizem infusion stopped and patient given 1 L bolus 0.9% normal saline resulting in normotensive pressure.. Patient taken to MRI which resulted multiple bilateral acute ischemic changes within the cerebellum greater on the right. General: non toxic, no distress, appears at stated age Derm: warm, dry Head: atraumatic, normocephalic, symmetric Eyes: Pupils PERRLA. EOMI, no lid lag, anicteric sclera Mouth: no lip lesion, mucus membranes moist Cardiovascular: S1-S2 normal with regular rate and rhythm. No murmurs, gallops, or rubs noted. Posterior tibial pulses palpated bilaterally. Cap refill less than 2 seconds. Lungs: Respirations even, regular, and unlabored on room air. Lungs clear to auscultation bilaterally with no wheezes, rhonchi, or rales noted. No accessory muscle usage. Abdominal: soft, nontender to palpation, no guarding, no appreciable o rganomegaly Ext: no gross muscle atrophy, no edema, no contractures Neuro: GCS 15. Speech clear. CN II-XI grossly intact, no focal neuro deficits. No arm drift. Normal finger to nose. Normal repetitive movements. Normal [id number]. Sensation intact. Psych: Alert, oriented, appropriate affect Assessment and Plan of Care: Acute embolic CVA of the cerebellum -CT head showing degenerative and nonspecific white matter changes most typical of remote ischemia. -MRI of brain with and without contrast revealing multiple bilateral acute ischemic changes within the cerebellum greater on the right. -Neurology following, appreciate further recommendations -Neuro checks every 4 hours -Echocardiogram showing a normal EF of 55-60% and no significant valvular abnormalities. -Cardiology following, may consider MIGUELITO awaiting further recommendations. -Daily aspirin and atorvastatin. -Lipid profile revealing no significant abnormalities with the exception of low HDL of 34. -Fall precautions. -PT/OT evaluation of balance and coordination. New-onset atrial fibrillation with RVR -EKG was completed confirming atrial fibrillation with RVR at 127 bpm with no noted T-wave or ST abnormalities showing no signs of acute ischemia. -[id number] score 2-3. -Patient received therapeutic dose of Lovenox in ED and is being started on Eliquis by cardiolgoy at this time. -Continue Cardizem infusion for rate control -Lopressor 25 mg twice a day -Telemetry monitoring. -echocardiogram showing a normal EF of 55-60% with no significant valvular abnormalities. -Cardiology following, appreciate further recommendations. Type II ked-oypcofq-eeegokdok diabetes mellitus with hyperglycemia -Glycemic protocol with NovoLog sliding scale. -Heart healthy carb consistent diet. -Hemoglobin A1c with a.m. labs. Hypertension -Monitor vital signs and continue daily medication regimen. Hyperlipidemia -Continue atorvastatin 80 mg nightly. -Lipid profile with a.m. labs. CODE STATUS: Full code DVT prophylaxis: Eliquis Discussed with: patient and his at bedside. Anticipated discharge date: clinical course to determine. Anticipated discharge place: home A total of 45 minutes was spent on the care of this complex patient more than 50% of the time was spent in counseling and care coordination. Objective - Vital Signs Vital signs: Vital Signs Temp 97.8 F 06/02/21 03:59 Pulse 67 06/02/21 08:00 Resp 16 06/02/21 08:00 BP 86/57 06/02/21 08:00 Pulse Ox 96 06/02/21 11:00 Intake & Output 06/01/21 06/02/21 06/02/21 18:59 06:59 18:59 Intake Total 240 76.750 1003.75 Output Total 220 150 Balance 240 -143.250 853.75 Weight 87.543 kg 87.5 kg Intake: Intake, IV Titration 76.750 523.75 Amount Diltiazem 125 mg In 76.750 23.75 Sodium Chloride 0.9% 100 ml @ 5 MG/HR 5 mls/hr IV .Q24H [facility] Rx#:[id number] Sodium Chloride 0.9% 1, 500 000 ml @ 999 mls/hr IV . Q1H1M [facility] Rx#:[id number] Oral 240 480 Output: Urine 220 150 Other: # Voids 1 - Labs CBC & Chem 7: 06/02/21 08:06 06/01/21 05:58 Labs: Abnormal Lab Results - Last 24 Hours (Table) 06/01/21 06/01/21 06/01/21 Range/Units 05:58 09:50 17:40 POC Glucose (mg/dL) 248 H (75-99) mg/dL Hemoglobin A1c 11.5 H (4.0-6.0) % HDL Cholesterol 34.0 L (40.0-60.0) mg/dL 06/01/21 06/02/21 06/02/21 Range/Units 20:26 05:55 08:06 POC Glucose (mg/dL) 203 H 189 H (75-99) mg/dL Hemoglobin A1c (4.0-6.0) % HDL Cholesterol 34.0 L (40.0-60.0) mg/dL <Mary Grace Jalloh - Last Filed: 06/02/21 18:46> Objective - Vital Signs Vital signs: Vital Signs Temp 97.8 F 06/02/21 15:43 Pulse 80 06/02/21 15:43 Resp 16 06/02/21 15:43 BP 99/67 06/02/21 15:43 Pulse Ox 98 06/02/21 15:43 Intake & Output 06/01/21 06/02/21 06/02/21 18:59 06:59 18:59 Intake Total 240 76.750 1003.75 Output Total 220 150 Balance 240 -143.250 853.75 Weight 87.543 kg 87.5 kg 87.5 kg Intake: Intake, IV Titration 76.750 523.75 Amount Diltiazem 125 mg In 76.750 23.75 Sodium Chloride 0.9% 100 ml @ 5 MG/HR 5 mls/hr IV .Q24H [facility] Rx#:[id number] Sodium Chloride 0.9% 1, 500 000 ml @ 999 mls/hr IV . Q1H1M [facility] Rx#:[id number] Oral 240 480 Output: Urine 220 150 Other: # Voids 1 # Bowel Movements 1 - Labs CBC & Chem 7: 06/02/21 08:06 06/01/21 05:58 Labs: Abnormal Lab Results - Last 24 Hours (Table) 06/01/21 06/01/21 06/02/21 Range/Units 05:58 20:26 05:55 POC Glucose (mg/dL) 203 H 189 H (75-99) mg/dL HDL Cholesterol 34.0 L (40.0-60.0) mg/dL 06/02/21 06/02/21 06/02/21 Range/Units 08:06 12:36 17:06 POC Glucose (mg/dL) 314 H 142 H (75-99) mg/dL HDL Cholesterol 34.0 L (40.0-60.0) mg/dL Assessment and Plan Assessment: Riaz Cortez NP rendered care for this patient independently, reviewed the findings and plan as documented in the note above. I did not physically speak with or examine the patient on this date.
[2021-06-02 12:38] LABS: Glucose,Whole Blood 314 mg/dL (75-99)
--- NOTE | 2021-06-02 12:49 | MR ---
EXAMINATION TYPE: MR brain wo/w con DATE OF EXAM: 06/02/2021 COMPARISON: CT brain 06/01/2021 HISTORY: Weakness, confusion, dizziness. CONTRAST: Performed utilizing 8.5 mL intravenous Gadavist gadolinium contrast. TECHNIQUE: Multiplanar, multiecho imaging on a 3.0 Dena magnet is performed through the brain. Stud y is not performed within 24 hours of arrival to the hospital. The craniovertebral junction is normal. The pituitary is normal. Diffusion-weighted imaging is performed. There are multiple bilateral scattered hyperintensities wit hin the cerebellum. Largest along the cerebellar pontine angle on the right. Supratentorial brain has normal diffusion. Some mild periventricular white matter and scattered centrum semiovale punctate hyperintensities aren 't inverted recovery weighted sequences likely related to chronic white matter changes. Ventricles and sulci are appropriate for the patient age. IMPRESSIONS: 1. Multiple bilateral acute ischemic type changes within the cerebellum. This is greater on the right . 2. Supratentorial brain has a few mild chronic changes. No acute ischemic changes are evident.
[2021-06-02 12:59] VITALS: BMI 26.2
--- NOTE | 2021-06-02 13:19 | P.PN ---
Subjective Progress Note Date: 06/02/21 Principal diagnosis: Paroxysmal atrial fibrillation This is a pleasant 18 was hospital with TIA. He presented with diplopia associated with dizziness and lightheadedness. He was found to be in A. fib which was new to him. He was seen this morning. He continues to be in A. fib with controlled heart rate. He is on oral anticoagulation. The echo showed normal left ventricular systolic function. He is asymptomatic from a cardiovascular standpoint of view. Objective - Vital Signs Vital signs: Vital Signs Temp 98.0 F 06/02/21 12:00 Pulse 103 H 06/02/21 12:00 Resp 16 06/02/21 12:00 BP 109/73 06/02/21 12:00 Pulse Ox 96 06/02/21 12:00 Intake & Output 06/01/21 06/02/21 06/02/21 18:59 06:59 18:59 Intake Total 240 76.750 1003.75 Output Total 220 150 Balance 240 -143.250 853.75 Weight 87.543 kg 87.5 kg 87.5 kg Intake: Intake, IV Titration 76.750 523.75 Amount Diltiazem 125 mg In 76.750 23.75 Sodium Chloride 0.9% 100 ml @ 5 MG/HR 5 mls/hr IV .Q24H [facility] Rx#:[id number] Sodium Chloride 0.9% 1, 500 000 ml @ 999 mls/hr IV . Q1H1M [facility] Rx#:[id number] Oral 240 480 Output: Urine 220 150 Other: # Voids 1 - Constitutional General appearance: Present: no acute distress - Respiratory Respiratory: bilateral: CTA - Cardiovascular Rhythm: irregularly irregular Heart sounds: normal: S1, S2 - Labs CBC & Chem 7: 06/02/21 08:06 06/01/21 05:58 Labs: Abnormal Lab Results - Last 24 Hours (Table) 06/01/21 06/01/21 06/01/21 Range/Units 05:58 09:50 17:40 POC Glucose (mg/dL) 248 H (75-99) mg/dL Hemoglobin A1c 11.5 H (4.0-6.0) % HDL Cholesterol 34.0 L (40.0-60.0) mg/dL 06/01/21 06/02/21 06/02/21 Range/Units 20:26 05:55 08:06 POC Glucose (mg/dL) 203 H 189 H (75-99) mg/dL Hemoglobin A1c (4.0-6.0) % HDL Cholesterol 34.0 L (40.0-60.0) mg/dL 06/02/21 Range/Units 12:36 POC Glucose (mg/dL) 314 H (75-99) mg/dL Hemoglobin A1c (4.0-6.0) % HDL Cholesterol (40.0-60.0) mg/dL Assessment and Plan Assessment: Assessment #1 TIA presented as diplopia as well as dizziness and lightheadedness #2 paroxysmal atrial fibrillation this is a new to the patient. The patient continues to be in A. fib #3 hypertension #4 dyslipidemia #5 diabetes Plan #1 continue oral anticoagulation #2 likely the patient's mother Ranjeetcortez drip #3 possible discharge in the next 24 hours
[2021-06-02] MEDS: METOPROLOL TARTRATE 25 MG TAB PO SCH ×2 (13:21→21:03)
[2021-06-02 17:07] LABS: Glucose,Whole Blood 142 mg/dL (75-99)
[2021-06-02 20:18] LABS: Glucose,Whole Blood 224 mg/dL (75-99)
[2021-06-02] MEDS: ATORVASTATIN 80 MG TAB PO SCH (21:03)
[2021-06-03 06:12] LABS: Glucose,Whole Blood 229 mg/dL (75-99)
[2021-06-03] MEDS: PANTOPRAZOLE 40 MG TABLET PO SCH (06:13)
[2021-06-03] MEDS: INSULIN ASPART (NovoLOG) 100 UNIT/ML VIAL SQ SCH ×4 (06:19→20:15)
[2021-06-03 08:04] LABS: Basophils # (A) 0.1 k/uL (0-0.2); Basophils % (A) 1 %; Eosinophils # (A) 0.2 k/uL (0-0.7); Eosinophils % (A) 3 %; HCT 44.3 % (39.0-53.0); HGB 15.4 gm/dL (13.0-17.5); Lymphocytes # (A) 2.1 k/uL (1.0-4.8); Lymphocytes % (A) 26 %; MCH 30.5 pg (25.0-35.0); MCHC 34.7 g/dL (31.0-37.0); MCV 87.8 fL (80.0-100.0); Mean Platelet Volume 7.1; Monocytes # (A) 0.4 k/uL (0-1.0); Monocytes % (A) 5 %; Neutrophils # (A) 5.1 k/uL (1.3-7.7); Neutrophils % (A) 64 %; Platelet Count 158 k/uL (150-450); RBC 5.04 m/uL (4.30-5.90); WBC 7.9 k/uL (3.8-10.6)
[2021-06-03 08:13] LABS: INR 1.2 (<1.2); Prothrombin Time 12.2 sec (9.0-12.0)
[2021-06-03 08:22] LABS: African American GFR (CKD) >90 (>60 ml/min/1.73 sqM); Anion Gap 5 mmol/L; Blood Urea Nitrogen 27 mg/dL (9-20); Calcium 8.8 mg/dL (8.4-10.2); Carbon Dioxide 27 mmol/L (22-30); Chloride 107 mmol/L (98-107); Glucose 204 mg/dL (74-99); Non-African American GFR(CKD) 81 (>60 ml/min/1.73 sqM); Potassium 4.4 mmol/L (3.5-5.1); Sodium 139 mmol/L (137-145)
[2021-06-03] MEDS: METOPROLOL TARTRATE 25 MG TAB PO SCH ×2 (08:29→20:14)
[2021-06-03] MEDS: ASPIRIN 81 MG PO SCH (08:29)
[2021-06-03] MEDS: APIXABAN 5 MG TAB PO SCH ×2 (08:30→20:15)
--- NOTE | 2021-06-03 09:42 | P.PN ---
<Riaz Cortez - Last Filed: 06/03/21 14:33> Subjective Progress Note Date: 06/03/21 History of Presenting Illness: Patient is a very pleasant 71-year-old male with a past medical history of coronary artery disease with stents, hypertension, hyperlipidemia, and type II pyp-pvgdexv-xvgrnajrn diabetes mellitus. He presented to the emergency department with a chief complaint of lightheadedness, dizziness, double vision, shortness of breath, and diaphoresis which came on suddenly when he awoke this morning and got up to use the restroom. He had complete workup done in the emerg ency department and was found to be in A. fib with RVR. An EKG was completed confirming atrial fibrillation with RVR at 127 bpm with no noted T-wave or ST abnormalities showing no signs of acute ischemia. A chest x-ray was also completed which was negative for acute cardiopulmonary process. troponin negative. CBC normal findings. BMP revealing mild hypokalemia and hyperglycemia otherwise normal findings. Patient was given therapeutic Lovenox injection and started on Cardizem infusion. He was admitted under our services for new onset A. fib with consultation to cardiology for continued medical management. CT head completed showing degenerative and nonspecific white matter changes most typical of remote ischemia. Neurology then consulted. MRI of brain with and without contrast revealing multiple bilateral acute ischemic changes within the cerebellum greater on the right. Physical exam: Patient seen and fully evaluated at the bedside. He reports that he continues to feel better this morning in lightheadedness, dizziness, and blurred vision r emain gone and have not returned since subsiding yesterday morning. Denies having any other complaints including headache, changes in hearing or tinnitus, changes in her difficulties with speech, dysphasia, numbness or tingling in face, chest pain or palpitations, shortness of breath, or experiencing any numbness/tingling/weakness in his extremities. MRI results discussed with patient at this time. Pt to be evaluated by PT/OT to assess coordination. Plan for likely discharge tomorrow morning. General: non toxic, no distress, appears at stated age Derm: warm, dry Head: atraumatic, normocephalic, symmetric Eyes: Pupils PERRLA. EOMI, no lid lag, anicteric sclera Mouth: no lip lesion, mucus membranes moist Cardiovascular: S1-S2 normal with regular rate and rhythm. No murmurs, gallops, or rubs noted. Posterior tibial pulses palpated bilaterally. Cap refill less than 2 seconds. Lungs: Respirations even, regular, and unlabored on room air. Lungs clear to auscultation bilaterally with no wheezes, rhonchi, or rales noted. No accessory muscle usage. Abdominal: soft, nontender to palpation, no guarding, no appreciable organomegaly Ext: no gross muscle atrophy, no edema, no contractures Neuro: GCS 15. Speech clear. CN II-XI grossly intact, no focal neuro deficits. No arm drift. Normal finger to nose. Normal repetitive movements. Normal bprj-ka-zwrl. Sensation intact. Psych: Alert, oriented, appropriate affect Assessment and Plan of Care: Acute embolic CVA of the cerebellum -CT head showing degenerative and nonspecific white matter changes most typical of remote ischemia. -MRI of brain with and without contrast revealing multiple bilateral acute ischemic changes within the cerebellum greater on the right. -Neurology following, appreciate further recommendations -Neuro checks every 4 hours -Echocardiogram showing a normal EF of 55-60% and no significant valvular abnormalities. -Cardiology following, appreciate further recommendations -Daily aspirin and atorvastatin. -Lipid profile revealing no significant abnormalities with the exception of low HDL of 34. -Hemoglobin A1c 11.5%, patient reports this is down 2 points over the past month after being started on Trulicity one month ago. We will plan on adding additional agent upon discharge, currently pt on sliding scale. -Fall precautions. -PT/OT evaluation of balance and coordination. New-onset atrial fibrillation with RVR -EKG was completed confirming atrial fibrillation with RVR at 127 bpm with no noted T-wave or ST abnormalities showing no signs of acute ischemia. -Whraw9Sbxp score 2-3. -Patient received therapeutic dose of Lovenox in ED and is being started on Eliquis by cardiolgoy at this time. -Continue Cardizem infusion for rate control -Lopressor 25 mg twice a day -Telemetry monitoring. -echocardiogram showing a normal EF of 55-60% with no significant valvular abnor malities. -Cardiology following, appreciate further recommendations. Type II jrc-dfxirdp-pdpxfwpie diabetes mellitus with hyperglycemia -Glycemic protocol with NovoLog sliding scale. -Heart healthy carb consistent diet. -Hemoglobin A1c with a.m. labs. Hypertension -Monitor vital signs and continue daily medication regimen. Hyperlipidemia -Continue atorvastatin 80 mg nightly. -Lipid profile with a.m. labs. CODE STATUS: Full code DVT prophylaxis: [place] Discussed with: patient and his at bedside. Anticipated discharge date: clinical course to determine. Anticipated discharge place: home A total of 45 minutes was spent on the care of this complex patient more than 50% of the time was spent in counseling and care coordination. Objective - Vital Signs Vital signs: Vital Signs Temp 97.8 F 06/03/21 08:00 Pulse 100 06/03/21 08:00 Resp 16 06/03/21 08:00 BP 96/62 06/03/21 08:00 Pulse Ox 98 06/03/21 08:00 Intake & Output 06/02/21 06/03/21 06/03/21 18:59 06:59 18:59 Intake Total 1003.75 720 Output Total 150 Balance 853.75 720 Weight 87.5 kg 87 kg Intake: Intake, IV Titration 523.75 Amount Diltiazem 125 mg In 23.75 Sodium Chloride 0.9% 100 ml @ 5 MG/HR 5 mls/hr IV .Q24H [facility] Rx#:[id number] Sodium Chloride 0.9% 1, 500 000 ml @ 999 mls/hr IV . Q1H1M [facility] Rx#:[id number] Oral 480 720 Output: Urine 150 Other: # Voids 1 # Bowel Movements 1 - Labs CBC & Chem 7: 06/03/21 07:24 06/03/21 07:24 Labs: Abnormal Lab Results - Last 24 Hours (Table) 06/02/21 06/02/21 06/02/21 Range/Units 08:06 12:36 17:06 PT (9.0-12.0) sec INR (<1.2) BUN (9-20) mg/dL Glucose (74-99) mg/dL POC Glucose (mg/dL) 314 H 142 H (75-99) mg/dL HDL Cholesterol 34.0 L (40.0-60.0) mg/dL 06/02/21 06/03/21 06/03/21 Range/Units 20:18 06:11 07:24 PT 12.2 H (9.0-12.0) sec INR 1.2 H (<1.2) BUN (9-20) mg/dL Glucose (74-99) mg/dL POC Glucose (mg/dL) 224 H 229 H (75-99) mg/dL HDL Cholesterol (40.0-60.0) mg/dL 06/03/21 Range/Units 07:24 PT (9.0-12.0) sec INR (<1.2) BUN 27 H (9-20) mg/dL Glucose 204 H (74-99) mg/dL POC Glucose (mg/dL) (75-99) mg/dL HDL Cholesterol (40.0-60.0) mg/dL <Mary Grace Jalloh - Last Filed: 06/03/21 18:49> Subjective Patient seen and examined independently. Patient was also seen by Riaz Cortez NP and case was discussed. I am in agreement with subjective, physical exam, assessment and plan as written above and amended below. His dizziness and blurry vision has resolved. No nausea or vomiting, no palpitation or chest pain. Went over the importance of taking his anticoagulation and not missing doses. General: non toxic, no distress, appears at stated age Derm: warm, dry Head: atraumatic, normocephalic, symmetric Eyes: EOMI, no lid lag, anicteric sclera Mouth: no lip lesion, mucus membranes moist Cardiovascular: S1S2 irreg, no murmur, positive posterior tibial pulse bilateral, Lungs: CTA bilateral, no rhonchi, no rales , no accessory muscle use Neuro: CN II-XI grossly intact, no focal neuro deficits Psych: Alert, oriented, appropriate affect CORRECTION: P. A fib current in NSR. No longer requiring cardizem gtt, on metoprolol Objective - Vital Signs Vital signs: Vital Signs Temp 98.0 F 06/03/21 16:00 Pulse 73 06/03/21 16:00 Resp 16 06/03/21 16:00 BP 130/71 06/03/21 16:00 Pulse Ox 98 06/03/21 16:00 Intake & Output 06/02/21 06/03/21 06/03/21 18:59 06:59 18:59 Intake Total 1003.75 1920 Output Total 150 Balance 853.75 1920 Weight 87.5 kg 87 kg Intake: Intake, IV Titration 523.75 Amount Diltiazem 125 mg In 23.75 Sodium Chloride 0.9% 100 ml @ 5 MG/HR 5 mls/hr IV .Q24H [facility] Rx#:[id number] Sodium Chloride 0.9% 1, 500 000 ml @ 999 mls/hr IV . Q1H1M [facility] Rx#:[id number] Oral 480 1920 Output: Urine 150 Other: # Voids 1 3 # Bowel Movements 1 - Labs CBC & Chem 7: 06/03/21 07:24 06/03/21 07:24 Labs: Abnormal Lab Results - Last 24 Hours (Table) 06/02/21 06/03/21 06/03/21 Range/Units 20:18 06:11 07:24 PT 12.2 H (9.0-12.0) sec INR 1.2 H (<1.2) BUN (9-20) mg/dL Glucose (74-99) mg/dL POC Glucose (mg/dL) 224 H 229 H (75-99) mg/dL 06/03/21 06/03/21 06/03/21 Range/Units 07:24 11:58 17:02 PT (9.0-12.0) sec INR (<1.2) BUN 27 H (9-20) mg/dL Glucose 204 H (74-99) mg/dL POC Glucose (mg/dL) 205 H 244 H (75-99) mg/dL
--- NOTE | 2021-06-03 10:46 | P.PN ---
Subjective Progress Note Date: 06/03/21 HISTORY OF PRESENT ILLNESS: This is a 71-year-old male with a past medical history significant for diabetes, hypertension, hyperlipidemia, and coronary artery disease with previous s tenting. Patient follows in the office with Dr. Zhang. We have been asked to see the patient in consultation for new onset atrial fibrillation. Patient examined at the bedside. Patient presented to the hospital secondary to severe diaphoresis and double vision after getting up from bed to use the bathroom. He denies chest pain or pressure. Denies shortness of breath. he denied feeling palpitations. Patient was found to be in A. fib with RVR upon presentation to the hospital. Patient was started on IV Cardizem. At the time of my examination, the patient remains in atrial fibrillation with heart rate around 110. EKG reveals A. fib with RVR Chest xray negative for acute process brain CT: Degenerative and nonspecific white matter changes most typical of remote ischemia. Laboratory data: WBC 9.7. Hemoglobin 15.7. Platelet count 186. Sodium 139. Potassium 3.4. BUN 24. Creatinine 0.89. troponin negative 2. Current home cardiac medications include lisinopril 2.5 mg daily, atorvastatin 80 mg daily, aspirin 81 mg daily 06/03/2021 Patient underwent MRI yesterday revealing multiple bilateral acute ischemic-type changes within the cerebellum. The patient remains on Eliquis, aspirin, Lipitor, lisinopril, and metoprolol. Telemetry reveals atrial fibrillation with controlled ventricular rate. His Cardizem drip was discontinued yesterday. Patient states his double vision has resolved. Patient does report feeling a little unsteady on his feet today. Echocardiogram completed revealed ejection fraction 55-60%. Mild mitral regurgitation. Cannot exclude mitral valve prolapse. Mild tricuspid regurgitation. PHYSICAL EXAM: VITAL SIGNS: Reviewed. GENERAL: Well-developed in no acute distress. HEENT: Head is normocephalic. Pupils are equal, round. Sclerae anicteric. Mucous membranes of the mouth are moist. Neck supple. No JVD or thyromegaly LUNGS: Respirations even and unlabored. Lungs essentially clear to auscultation bilaterally. HEART: Irregular rate and rhythm. S1 and S2 heard. ABDOMEN: Soft. Nondistended. Nontender. EXTREMITIES: Normal range of motion. No clubbing or cyanosis. Peripheral pulses intact. No lower extremity edema NEUROLOGIC: Awake and alert. Oriented x 3. ASSESSMENT: Double vision Acute embolic CVA of cerebellum New onset persistent atrial fibrillation with RVR Coronary artery disease with previous stenting Hypertension Hyperlipidemia Diabetes mellitus PLAN: Neurology following Continue current cardiac medications Further recommendations pending patient course Nurse practitioner note has been reviewed by physician. Signing provider agrees with the documented findings, assessment, and plan of care. Objective - Vital Signs Vital signs: Vital Signs Temp 97.8 F 06/03/21 08:00 Pulse 100 06/03/21 08:00 Resp 16 06/03/21 08:00 BP 96/62 06/03/21 08:00 Pulse Ox 98 06/03/21 08:00 Intake & Output 06/02/21 06/03/21 06/03/21 18:59 06:59 18:59 Intake Total 1003.75 720 Output Total 150 Balance 853.75 720 Weight 87.5 kg 87 kg Intake: Intake, IV Titration 523.75 Amount Diltiazem 125 mg In 23.75 Sodium Chloride 0.9% 100 ml @ 5 MG/HR 5 mls/hr IV .Q24H [facility] Rx#:[id number] Sodium Chloride 0.9% 1, 500 000 ml @ 999 mls/hr IV . Q1H1M [facility] Rx#:[id number] Oral 480 720 Output: Urine 150 Other: # Voids 1 # Bowel Movements 1 - Labs CBC & Chem 7: 06/03/21 07:24 06/03/21 07:24 Labs: Abnormal Lab Results - Last 24 Hours (Table) 06/02/21 06/02/21 06/02/21 Range/Units 08:06 12:36 17:06 PT (9.0-12.0) sec INR (<1.2) BUN (9-20) mg/dL Glucose (74-99) mg/dL POC Glucose (mg/dL) 314 H 142 H (75-99) mg/dL HDL Cholesterol 34.0 L (40.0-60.0) mg/dL 06/02/21 06/03/21 06/03/21 Range/Units 20:18 06:11 07:24 PT 12.2 H (9.0-12.0) sec INR 1.2 H (<1.2) BUN (9-20) mg/dL Glucose (74-99) mg/dL POC Glucose (mg/dL) 224 H 229 H (75-99) mg/dL HDL Cholesterol (40.0-60.0) mg/dL 06/03/21 Range/Units 07:24 PT (9.0-12.0) sec INR (<1.2) BUN 27 H (9-20) mg/dL Glucose 204 H (74-99) mg/dL POC Glucose (mg/dL) (75-99) mg/dL HDL Cholesterol (40.0-60.0) mg/dL
[2021-06-03 12:05] LABS: Glucose,Whole Blood 205 mg/dL (75-99)
[2021-06-03 17:03] LABS: Glucose,Whole Blood 244 mg/dL (75-99)
--- NOTE | 2021-06-03 17:24 | P.PN ---
Subjective Progress Note Date: 06/02/21 Patient was seen via Tele-medicine. Patient is laying in the bed, very comfortable. States he is much improved. Patient's diplopia has completely resolved. Denies any numbness tingling. No new focal symptoms. Denies numbness tingling focal weakness. No nausea vomiting anymore. Objective - Vital Signs Vital signs: Vital Signs Temp 98.0 F 06/03/21 16:00 Pulse 73 06/03/21 16:00 Resp 16 06/03/21 16:00 BP 130/71 06/03/21 16:00 Pulse Ox 98 06/03/21 16:00 Intake & Output 06/02/21 06/03/21 06/03/21 18:59 06:59 18:59 Intake Total 1003.75 1440 Output Total 150 Balance 853.75 1440 Weight 87.5 kg 87 kg Intake: Intake, IV Titration 523.75 Amount Diltiazem 125 mg In 23.75 Sodium Chloride 0.9% 100 ml @ 5 MG/HR 5 mls/hr IV .Q24H [facility] Rx#:[id number] Sodium Chloride 0.9% 1, 500 000 ml @ 999 mls/hr IV . Q1H1M ONE Rx#:[id number] Oral 480 1440 Output: Urine 150 Other: # Voids 1 3 # Bowel Movements 1 - Exam On examination patient is alert and awake, fully oriented. Speech and language functions are normal. Pupils are equal, round and reacting to light. Visual chavez are full. Extraocular muscles are intact, with very minimal nystagmus. Face is now symmetric. On muscle strength testing there is no pronator drift and the strength is normal in arms and legs. No obvious ataxia. Patient walks somewhat unsteady wide-based. 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 * Diplopia, now resolved. Likely ischemia in the brainstem, without evidence of acute stroke(in brainstem). * Atrial fibrillation, new onset * Seizure type spell * Hypertension * Diabetes Plan: * Continue Eliquis 5 mg twice a day. * MRI of the brain revealed multiple bilateral acute ischemic type changes within the cerebellum. This is greater on the right. No evidence of acute ischemia in the brainstem. Supratentorial brain has a few mild chronic changes. Patient was informed that cerebellar strokes usually do recover very well. * Carotid Doppler showed atheromatous plaquing with intimal thickening. No significant flow limiting stenosis is evident. Antegrade flow in both vertebral arteries. * 2-D echo showed atrial fibrillation, normal left-ventricular size. Mild concentric LVH, EF is between 55-60%. Left ventricular filling pressure cannot be estimated due to atrial fibrillation. Mild MR. Cannot exclude mitral valve prolapse. Cardiology on the case. * Hemoglobin A1c 11.5 indicative of poorly controlled diabetes. Patient states a month ago his A1c was 13, which is now improved 11.5. Patient has been started on Trulicity earlier this month, which hopefully will help with controlling diabetes. * Fasting lipid panel with cholesterol 122, LDL 71.2, HDL 34 and triglycerides 84.0. Continue Lipitor 80 mg. * PT OT evaluate gait. Discussed with patient's nurse.
--- NOTE | 2021-06-03 17:29 | P.PN ---
Subjective Progress Note Date: 06/03/21 Patient was seen via Tele-medicine. Patient is sitting in the recliner, very comfortable. States he is much improved, even as compared to yesterday. Patient's diplopia has completely resolved. Denies any numbness tingling. No new focal symptoms. Denies numbness tingling focal weakness. No nausea vomiting anymore. Patient states his balance has improved. He is using a 4 prong cane. Denies headache, no visual symptoms. Objective - Vital Signs Vital signs: Vital Signs Temp 97.8 F 06/03/21 08:00 Pulse 94 06/03/21 12:00 Resp 16 06/03/21 12:00 BP 112/70 06/03/21 12:00 Pulse Ox 98 06/03/21 12:00 Intake & Output 06/02/21 06/03/21 06/03/21 18:59 06:59 18:59 Intake Total 1003.75 1200 Output Total 150 Balance 853.75 1200 Weight 87.5 kg 87 kg Intake: Intake, IV Titration 523.75 Amount Diltiazem 125 mg In 23.75 Sodium Chloride 0.9% 100 ml @ 5 MG/HR 5 mls/hr IV .Q24H [facility] Rx#:[id number] Sodium Chloride 0.9% 1, 500 000 ml @ 999 mls/hr IV . Q1H1M ONE Rx#:[id number] Oral 480 1200 Output: Urine 150 Other: # Voids 1 3 # Bowel Movements 1 - Exam On examination patient is alert and awake, fully oriented. Speech and language functions are normal. Pupils are equal, round and reacting to light. Visual chavez are full. Extraocular muscles are intact, with very minimal nystagmus. Face is symmetric, although there may be slight flattening of the right nasolabial fold. On muscle strength testing there is no pronator drift and the strength is normal in arms and legs. No obvious ataxia. Patient got up from the chair, used the 4-prong cane and feels much steady. 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 * Diplopia, now resolved. Likely ischemia in the brainstem, without evidence of acute stroke(in brainstem). * Atrial fibrillation, new onset * Seizure type spell * Hypertension * Diabetes Plan: * Continue Eliquis 5 mg twice a day. * MRI of the brain revealed multiple bilateral acute ischemic type changes within the cerebellum. This is greater on the right. No evidence of acute ischemia in the brainstem. Supratentorial brain has a few mild chronic changes. Patient was informed that cerebellar strokes usually do recover very well. * Carotid Doppler showed atheromatous plaquing with intimal thickening. No significant flow limiting stenosis is evident. Antegrade flow in both vertebral arteries. * 2-D echo showed atrial fibrillation, normal left-ventricular size. Mild concentric LVH, EF is between 55-60%. Left ventricular filling pressure cannot be estimated due to atrial fibrillation. Mild MR. Cannot exclude mitral valve prolapse. Cardiology on the case. * Hemoglobin A1c 11.5 indicative of poorly controlled diabetes. Patient states a month ago his A1c was 13, which is now improved 11.5. Patient has been started on Trulicity earlier this month, which hopefully will help with controlling diabetes. * Fasting lipid panel with cholesterol 122, LDL 71.2, HDL 34 and triglycerides 84.0. Continue Lipitor 80 mg. * PT OT evaluate gait. Continue physical therapy as an outpatient also. * Follow up with a neurologist in 1-2 weeks as outpatient. Neurologically clear for discharge. We will sign off.
[2021-06-03 20:10] LABS: Glucose,Whole Blood 224 mg/dL (75-99)
[2021-06-03] MEDS: ATORVASTATIN 80 MG TAB PO SCH (20:15)
[2021-06-04 00:51] VITALS: RESP 16
[2021-06-04] MEDS: PANTOPRAZOLE 40 MG TABLET PO SCH (06:24)
[2021-06-04] MEDS: INSULIN ASPART (NovoLOG) 100 UNIT/ML VIAL SQ SCH (06:36)
[2021-06-04 06:40] LABS: Glucose,Whole Blood 208 mg/dL (75-99)
[2021-06-04] MEDS ORDERED: NON FORMULARY DRUG (Dulaglutide [Trulicity] 1.5 MG/0.5 ML Pen.Injctr) SQ SCH (09:00)
[2021-06-04] MEDS: METOPROLOL TARTRATE 25 MG TAB PO SCH (09:22)
[2021-06-04] MEDS: ASPIRIN 81 MG PO SCH (09:22)
[2021-06-04] MEDS: APIXABAN 5 MG TAB PO SCH (09:22)
[2021-06-04 10:26] VITALS: BP 137/76; PULSE 77; TEMP 98.6
--- NOTE | 2021-06-04 11:30 | P.PN ---
Subjective Progress Note Date: 06/04/21 HISTORY OF PRESENT ILLNESS: This is a 71-year-old male with a past medical history significant for diabetes, hypertension, hyperlipidemia, and coronary artery disease with previous s tenting. Patient follows in the office with Dr. Zhang. We have been asked to see the patient in consultation for new onset atrial fibrillation. Patient examined at the bedside. Patient presented to the hospital secondary to severe diaphoresis and double vision after getting up from bed to use the bathroom. He denies chest pain or pressure. Denies shortness of breath. he denied feeling palpitations. Patient was found to be in A. fib with RVR upon presentation to the hospital. Patient was started on IV Cardizem. At the time of my examination, the patient remains in atrial fibrillation with heart rate around 110. EKG reveals A. fib with RVR Chest xray negative for acute process brain CT: Degenerative and nonspecific white matter changes most typical of remote ischemia. Laboratory data: WBC 9.7. Hemoglobin 15.7. Platelet count 186. Sodium 139. Potassium 3.4. BUN 24. Creatinine 0.89. troponin negative 2. Current home cardiac medications include lisinopril 2.5 mg daily, atorvastatin 80 mg daily, aspirin 81 mg daily 06/03/2021 Patient underwent MRI yesterday revealing multiple bilateral acute ischemic-type changes within the cerebellum. The patient remains on Eliquis, aspirin, Lipitor, lisinopril, and metoprolol. Telemetry reveals atrial fibrillation with controlled ventricular rate. His Cardizem drip was discontinued yesterday. Patient states his double vision has resolved. Patient does report feeling a little unsteady on his feet today. Echocardiogram completed revealed ejection fraction 55-60%. Mild mitral regurgitation. Cannot exclude mitral valve prolapse. Mild tricuspid regurgitation. 06/04/2021 Patient examined this morning at the bedside. She denies chest pain or pressure. He denies shortness of breath. Patient has been ambulating up in the hallway. Vital signs are stable. PHYSICAL EXAM: VITAL SIGNS: Reviewed. GENERAL: Well-developed in no acute distress. HEENT: Head is normocephalic. Pupils are equal, round. Sclerae anicteric. Mucous membranes of the mouth are moist. Neck supple. No JVD or thyromegaly LUNGS: Respirations even and unlabored. Lungs essentially clear to auscultation bilaterally. HEART: regular rate and rhythm. S1 and S2 heard. ABDOMEN: Soft. Nondistended. Nontender. EXTREMITIES: Normal range of motion. No clubbing or cyanosis. Peripheral pulses intact. No lower extremity edema NEUROLOGIC: Awake and alert. Oriented x 3. ASSESSMENT: Double vision Acute embolic CVA of cerebellum New onset persistent atrial fibrillation with RVR Coronary artery disease with previous stenting Hypertension Hyperlipidemia Diabetes mellitus PLAN: Neurology following Continue current cardiac medications Patient is stable for for discharge home today from a cardiac perspective Patient to follow-up outpatient with Dr. Zhang Nurse practitioner note has been reviewed by physician. Signing provider agrees with the documented findings, assessment, and plan of care. Objective - Vital Signs Vital signs: Vital Signs Temp 98.6 F 06/04/21 08:00 Pulse 77 06/04/21 08:00 Resp 16 06/04/21 08:00 BP 137/76 06/04/21 08:00 Pulse Ox 99 06/04/21 08:00 Intake & Output 06/03/21 06/04/21 06/04/21 18:59 06:59 18:59 Intake Total 1920 480 360 Balance 1920 480 360 Weight 86.7 kg Intake: Oral 1920 480 360 Other: # Voids 3 3 - Labs CBC & Chem 7: 06/03/21 07:24 06/03/21 07:24 Labs: Abnormal Lab Results - Last 24 Hours (Table) 06/03/21 06/03/21 06/03/21 Range/Units 11:58 17:02 20:09 POC Glucose (mg/dL) 205 H 244 H 224 H (75-99) mg/dL 06/04/21 Range/Units 06:18 POC Glucose (mg/dL) 208 H (75-99) mg/dL
[2021-06-04 11:53] LABS: Glucose,Whole Blood 177 mg/dL (75-99)
--- NOTE | 2021-06-04 14:36 | P.DS ---
<Riaz Cortez - Last Filed: 06/04/21 14:31> Providers Expected date of discharge: 06/04/21 Hospital Course: Discharge Diagnosis: Acute embolic CVA of the cerebellum New-onset atrial fibrillation with RVR Type II aym-[id number]-sflnbdcdk diabetes mellitus with hyperglycemia Hypertension Hyperlipidemia Hospital Course: Patient is a very pleasant 71-year-old male with a past medical history of coronary artery disease with stents, hypertension, hyperlipidemia, and type II jim-utbkmgg-hqkojnmfv diabetes mellitus. He presented to the emergency department with a chief complaint of lightheadedness, dizziness, double vision, shortness of breath, and diaphoresis which came on suddenly when he awoke this morning and got up to use the restroom. He had complete workup done in the emergency department and was found to be in A. fib with RVR. An EKG was completed confirming atrial fibrillation with RVR at 127 bpm with no noted T- wave or ST abnormalities showing no signs of acute ischemia. A chest x-ray was a lso completed which was negative for acute cardiopulmonary process. troponin negative. CBC normal findings. BMP revealing mild hypokalemia and hyperglycemia otherwise normal findings. Patient was given therapeutic Lovenox injection and started on Cardizem infusion. He was admitted under our services for new onset A. fib with consultation to cardiology for continued medical management. CT head completed showing degenerative and nonspecific white matter changes most typical of remote ischemia. Neurology then consulted. MRI of brain with and without contrast revealing multiple bilateral acute ischemic changes within the cerebellum greater on the right. PT/OT consulted and evaluated patient. Patient has had full resolution of symptoms for greater than 48 hours. Patient medically stable for discharge home and has been cleared also by neurology and cardiology for discharge home. Patient will include with 11.5% in addition to his trulicity, pt started on Glucophage 500 mg twice a day with meals. Additional medications patient being discharged home on include Eliquiis and metoprolol. Patient to follow up outpatient with PCP, neurology, and cardiology. Physical exam: Patient seen and fully evaluated at the bedside. He reports his symptoms of dizziness, lightheadedness, blurred vision remained gone and have been gone for greater than 48 hours now. He denies having any other complaints including headache, changes in hearing or tinnitus, changes in her difficulties with speech, dysphasia, numbness or tingling in face, chest pain or palpitations, shortness of breath, or experiencing any numbness/tingling/weakness in his extremities. Patient stable for discharge home. General: non toxic, no distress, appears at stated age Derm: warm, dry Head: atraumatic, normocephalic, symmetric Eyes: Pupils PERRLA. EOMI, no lid lag, anicteric sclera Mouth: no lip lesion, mucus membranes moist Cardiovascular: S1-S2 normal with regular rate and rhythm. No murmurs, gallops, or rubs noted. Posterior tibial pulses palpated bilaterally. Cap refill less than 2 seconds. Lungs: Respirations even, regular, and unlabored on room air. Lungs clear to auscultation bilaterally with no wheezes, rhonchi, or rales noted. No accessory muscle usage. Abdominal: soft, nontender to palpation, no guarding, no appreciable organomegaly Ext: no gross muscle atrophy, no edema, no contractures Neuro: GCS 15. Speech clear. CN II-XI grossly intact, no focal neuro deficits. No arm drift. Normal finger to nose. Normal repetitive movements. Normal gkjq-ce-fqta. Sensation intact. Psych: Alert, oriented, appropriate affect A total of 45 minutes of time were spent preparing this complex discharge summary. Patient Condition at Discharge: Good Plan - Discharge Summary Discharge Rx Participant: Yes New Discharge Prescriptions: New Apixaban [Eliquis] 5 mg PO BID #60 tab metFORMIN HCL [Glucophage] 500 mg PO BID 30 Days #60 tab Metoprolol Tartrate [Lopressor] 25 mg PO BID 30 Days #60 tab Continue lisinopriL [Zestril] 2.5 mg PO DAILY Aspirin EC [Ecotrin Low Dose] 81 mg PO DAILY Dulaglutide [Trulicity] 1.5 mg SQ MO Atorvastatin [Lipitor] 80 mg PO HS Discharge Medication List Apixaban [Eliquis] 5 mg PO BID #60 tab 06/01/21 [Rx] Aspirin EC [Ecotrin Low Dose] 81 mg PO DAILY 06/01/21 [History] Atorvastatin [Lipitor] 80 mg PO HS 06/01/21 [History] Dulaglutide [Trulicity] 1.5 mg SQ MO 06/01/21 [History] lisinopriL [Zestril] 2.5 mg PO DAILY 06/01/21 [History] Metoprolol Tartrate [Lopressor] 25 mg PO BID 30 Days #60 tab 06/04/21 [Rx] metFORMIN HCL [Glucophage] 500 mg PO BID 30 Days #60 tab 06/04/21 [Rx] Follow up Appointment(s)/Referral(s): Kristy Zhang MD [STAFF PHYSICIAN] - 06/13/21 7:30 am Taniya Michael MD [REFERRING] - 1 Week (office will call you with follow up appointment date and time) Efe Johnson MD [Primary Care Provider] - 1-2 days Patient Instructions/Handouts: A-fib (Atrial Fibrillation) (DC), Heart Healthy Diet (DC) Activity/Diet/Wound Care/Special Instructions: Diet: Heart healthy and carb consistent diet. Special Instructions: Copay for eliquis is $42. Free coupon will be applied for 1st month in [facility] It is very important for you to take your medications as prescribed without missing any doses. Please keep all follow-up appointments. It was truly a pleasure having you for a patient!! Thank you for allowing us to participate in your care!! Discharge Disposition: HOME SELF-CARE <Mary Grace Jalloh A - Last Filed: 06/04/21 15:34> Providers Date of admission: 06/01/21 07:14 Attending physician: Brian Macdonald MD Consults: 06/01/21 08:53 Consult Physician Routine Consulting Provider: Conor Allison Consult Reason/Comments: rule out embolic CVA, dizziness/lightheadedness/blurred vision Do you want consulting provider notified?: Yes Consult Physician Routine Consulting Provider: Carmelo Akbar Consult Reason/Comments: New-onset atrial fibrillation with RVR Do you want consulting provider notified?: Yes Primary care physician: Efe Johnson MD Hospital Course: Riaz Cortez NP rendered care for this patient independently, reviewed the findings and plan as documented in the note above. I did not physically speak with or examine the patient on this date.
== END 2021-06-04 14:21 | disposition home or self-care (01) | DRG 65 ==
LOC: EC 05:41 → 3SCARD 07:14
PROVIDERS: ADMIT Internal Medicine; ATTEND Internal Medicine
DX: I63.449 Cerebral infarction due to embolism of unspecified cerebellar artery (principal); I48.19 Other persistent atrial fibrillation; E11.65 Type 2 diabetes mellitus with hyperglycemia; E78.5 Hyperlipidemia, unspecified; E87.6 Hypokalemia; I10 Essential (primary) hypertension; I25.10 Atherosclerotic heart disease of native coronary artery without angina pectoris; R56.9 Unspecified convulsions; R29.810 Facial weakness; I34.0 Nonrheumatic mitral (valve) insufficiency; Z79.01 Long term (current) use of anticoagulants; Z79.82 Long term (current) use of aspirin; Z79.84 Long term (current) use of oral hypoglycemic drugs; Z79.899 Other long term (current) drug therapy; Z95.5 Presence of coronary angioplasty implant and graft; Z98.890 Other specified postprocedural states
CPT/HCPCS: 36415; 70450; 70553; 71045; 80048; 80053; 80061; 83036; 83735; 84484; 85025; 85610; 85730; 93005; 93306; 93880; 96365; 96366; 96372; 96375; 96376; 99285

== ENCOUNTER 2021-07-11 05:54 | Day surgery (SDC) | payer MEDICARE ==
[2021-07-06 11:10] VITALS: BMI 26.7
[2021-07-11] MEDS ORDERED: SODIUM CHLORIDE 0.9% 1,000 ML in EMPTY BAG 1 BAG IV ONE (06:01)
[2021-07-11] MEDS ORDERED: NITROGLYCERIN SL TABS 0.4 MG TAB SUBLINGUAL PRN ×2 (06:01→08:47)
[2021-07-11] MEDS ORDERED: ASPIRIN 325 MG TAB PO STA (06:01)
[2021-07-11] MEDS ORDERED: ALPRAZolam 0.25 MG TAB PO PRN (06:01)
[2021-07-11] MEDS ORDERED: ATORVASTATIN 80 MG TAB PO STA (06:01)
[2021-07-11] MEDS ORDERED: ALPRAZolam 0.5 MG TAB PO PRN (06:01)
[2021-07-11] MEDS ORDERED: SODIUM CHLORIDE 0.9% 1,000 ML IV ONE (06:10)
[2021-07-11 06:33] LABS: Glucose,Whole Blood 179 mg/dL (75-99)
[2021-07-11 06:37] VITALS: RESP 16; TEMP 98.2
[2021-07-11 06:37] LABS: Basophils % (A) 1 %; Eosinophils # (A) 0.2 k/uL (0-0.7); Eosinophils % (A) 4 %; HCT 44.6 % (39.0-53.0); HGB 15.3 gm/dL (13.0-17.5); Lymphocytes # (A) 1.9 k/uL (1.0-4.8); Lymphocytes % (A) 29 %; MCH 31.2 pg (25.0-35.0); MCHC 34.2 g/dL (31.0-37.0); MCV 91.1 fL (80.0-100.0); Mean Platelet Volume 7.7; Monocytes # (A) 0.4 k/uL (0-1.0); Monocytes % (A) 5 %; Neutrophils # (A) 3.9 k/uL (1.3-7.7); Neutrophils % (A) 60 %; Platelet Count 167 k/uL (150-450); Poikilocytosis Slight; RBC 4.89 m/uL (4.30-5.90); RDW 14.4 % (11.5-15.5); WBC 6.6 k/uL (3.8-10.6)
[2021-07-11 06:49] LABS: African American GFR (CKD) >90 (>60 ml/min/1.73 sqM); Anion Gap 10 mmol/L; Blood Urea Nitrogen 24 mg/dL (9-20); Calcium 9.6 mg/dL (8.4-10.2); Carbon Dioxide 23 mmol/L (22-30); Chloride 106 mmol/L (98-107); Glucose 184 mg/dL (74-99); Non-African American GFR(CKD) 81 (>60 ml/min/1.73 sqM); Potassium 4.1 mmol/L (3.5-5.1); Sodium 139 mmol/L (137-145)
[2021-07-11] MEDS ORDERED: fentaNYL (PF) 50 MCG/ML 2 ML AMP IVP ONE (07:30)
[2021-07-11] MEDS ORDERED: LIDOCAINE 1% INJ 10MG/ML (20 ML MDV) SQ ONE (07:34)
[2021-07-11] MEDS ORDERED: VERAPAMIL SYRINGE (5 MG/10 ML) INTRAARTER ONE (07:43)
[2021-07-11] MEDS ORDERED: HEPARIN SODIUM 1,000 UN/ML (10ML VL) IV ONE ×2 (07:50→08:00)
[2021-07-11] MEDS ORDERED: CLOPIDOGREL 75 MG TAB ONE (07:56)
[2021-07-11] MEDS ORDERED: CLOPIDOGREL 75 MG TAB PO ONE (08:05)
[2021-07-11] MEDS ORDERED: IOPAMIDOL-370 125ML BTL INJ ONE ×2 (08:10→08:23)
[2021-07-11] MEDS ORDERED: NITROGLYCERIN 1000MCG/10ML SYRINGE INTRACORON ONE (08:12)
[2021-07-11] MEDS ORDERED: ZOLPIDEM 5 MG TAB PO PRN (08:47)
[2021-07-11] MEDS ORDERED: MAG HYDROX/AL HYDROX/SIMETH 30 ML CUP PO PRN (08:47)
[2021-07-11] MEDS ORDERED: RX INFO: IV CONTRAST WAS GIVEN 1 EACH MISC MISCELLANE PRN (08:47)
[2021-07-11] MEDS ORDERED: ATROPINE SULFATE 0.1 MG/ML 10ML SYRINGE IV PRN (08:47)
[2021-07-11] MEDS ORDERED: ASPIRIN 81 MG PO SCH (09:00)
[2021-07-11] MEDS ORDERED: SODIUM CHLORIDE 0.9% 1,000 ML IV SCH (09:00)
[2021-07-11] MEDS ORDERED: METOPROLOL TARTRATE 25 MG TAB PO SCH (09:00)
--- NOTE | 2021-07-11 09:42 | CC ---
CARDIAC CATHETERIZATION REPORT Mr. Brand is a 71-year-old male with known history of hypertension, hyperlipidemia, diabetes mellitus as well history of coronary artery disease who had a recent episode of atrial fibrillation as well as subsequently abnormal myocardial perfusion imaging. In view of that, recommendation was made regarding cardiac catheterization. The procedure as well as the risks and the complications were discussed with the patient, who was in full understanding and agreement. PROCEDURE: Patient was brought to fish farm lab[facility] in a fasting, semi-sedated state after receiving fentanyl and Benadryl and achieving a moderate conscious sedated state. Using Xylocaine anesthesia and Seldinger technique, a 6-Occitan sheath was introduced in the right radial artery. Selective right and left coronary angiography was performed using 5-Occitan 4 bend right Srinivasa and 3-1/2 bend left Srinivasa catheters. Multiple views were taken of the arteries, including hemiaxial views. The right Srinivaas was used to cross the aortic valve. Left ventricular end-diastolic pressure was calculated. Following that, catheters were removed, images were reviewed. Of note, the patient received intra-arterial verapamil as well 4500 units of intravenous heparin. FINDINGS: LEFT MAIN: This is a short-sized vessel bifurcating into left circumflex and left anterior descending artery. Left main coronary artery has no evidence of high-grade stenosis. LEFT ANTERIOR DESCENDING ARTERY: This is a large-sized vessel reaching to the apex with a wrap around the apex segment giving rise to a moderately sized diagonal branch in the mid segment. The stented segment in the proximal LAD is patent, has mild intimal in- stent restenosis of 10% to 20% without any evidence of high-grade stenosis. The rest of the vessel has no evidence of high-grade stenosis. LEFT CIRCUMFLEX: This is a large nondominant vessel giving rise to a large obtuse marginal branch. At the proximal segment of the obtuse marginal branch there is a 95% lesion. The rest of the vessel has mild intimal disease without any evidence of high- grade stenosis. RIGHT CORONARY ARTERY: This is a large dominant vessel bifurcating distally into PDA and posterolateral segment and branches. The ostium of the right PDA has a 50% to 60%. The rest of the vessel has no high-grade stenosis. LEFT VENTRICULOGRAM: Left ventriculogram was not performed. HEMODYNAMICS: There was no gradient across the aortic valve. The left ventricular end- diastolic pressure was 8-10 mmHg. CONCLUSION: 1. Critical stenosis in the first obtuse marginal branch. 2. Mild disease in the proximal stented LAD and moderate disease in the ostium of the PDA. RECOMMENDATIONS: In view of findings and anatomy, I have recommended proceeding with angioplasty and stenting of the left circumflex. The procedure, its risks and the complications were discussed with the patient, who is in full understanding and agreement. MMPETER / ANA MARIAN: [id number] /
--- NOTE | 2021-07-11 09:47 | PTCA ---
PERCUTANEOUSTRANS CORORONARY ANGIOGRAPHY Mr. Brand is a 71-year-old male with known history of hypertension, hyperlipidemia and diabetes mellitus who had a prior history of coronary artery disease and had abnormal myocardial perfusion imaging, underwent cardiac catheterization and was found to have critical stenosis involving the large obtuse marginal branch. In view of that, recommendation was made regarding angioplasty and stenting. The procedure, its risks and complications were discussed with the patient, who was in full understanding and agreement. PROCEDURE: A 6-Amharic FL3.5 guiding catheter was introduced into the system. After cannulating the left main, a 0.014 balanced medium weight J-wire was advanced across the lesion, positioned distally. Then a 2.5 x 12 mm NC Trek balloon was advanced and one inflation at 10 atmospheres was done. Following that the balloon was removed and a 3.0 x 18 mm Xience Skypoint stent was advanced, deployed and post-dilated at 16 atmospheres. After the last inflation, after appropriate wait, the balloon and the guidewire were withdrawn back into the guiding catheter. Images were obtained and repeated. Those images revealed stable successful stenting. At that point, the guiding catheter, the balloon and the guidewire were removed. The sheath was removed. Hemostasis was obtained with deployment of a TR band. There was no immediate complication. Patient was returned to his room in stable condition. Of note, the patient received an additional 4000 units of intravenous heparin. His ACT was followed. He received an oral loading dose of clopidogrel. He had no chest discomfort or EKG changes with the inflations. RESULT: Successful stenting of the first obtuse marginal branch with reduction of stenosis from 95% to 0%. RECOMMENDATIONS: Patient to continue on aspirin, Plavix and statin. His anticoagulation will be initiated and his aspirin will be stopped in 2 weeks. Those findings and recommendations were discussed with the patient and his family, who are in full understanding and agreement. Duration of the sedation was 50 minutes. MMODL / IJN: [id number] /
[2021-07-11] MEDS ORDERED: fentaNYL (PF) 50 MCG/ML 2 ML AMP ONE (10:05)
[2021-07-11 11:42] VITALS: BP 122/78; PULSE 72
[2021-07-11] MEDS ORDERED: ATORVASTATIN 80 MG TAB PO SCH (21:00)
[2021-07-12] MEDS ORDERED: CLOPIDOGREL 75 MG TAB PO SCH (09:00)
[2021-07-16] MEDS ORDERED: NON FORMULARY DRUG (Dulaglutide [Trulicity] 1.5 MG/0.5 ML Pen.Injctr) SQ SCH (08:48)
== END 2021-07-11 11:45 | disposition home or self-care (01) ==
LOC: CATHCVL 05:54
PROVIDERS: ATTEND Internal Medicine Interventional Cardiology
DX: I25.10 Atherosclerotic heart disease of native coronary artery without angina pectoris (principal); I10 Essential (primary) hypertension; E11.9 Type 2 diabetes mellitus without complications; I48.0 Paroxysmal atrial fibrillation; E78.2 Mixed hyperlipidemia; Z79.82 Long term (current) use of aspirin; Z79.899 Other long term (current) drug therapy; Z79.01 Long term (current) use of anticoagulants
CPT/HCPCS: 93458; 80048; 85025; C9600; C1769 ×2; C1887; C1894; C1725; C1874; J2001; J3010; J1644 ×2; Q9967